=== PATIENT | female | born 2000 | race Caucasian/White ===

== ENCOUNTER 2021-06-16 20:03 | Outpatient (CLI) | payer OTHER ==
[2021-06-16 20:54] VITALS: BP 125/58; PULSE 97; RESP 18; TEMP 97.8
--- NOTE | 2021-06-18 09:12 | P.MSEPDOC ---
Presenting Problems - Arrival Data Date of Arrival on Unit: 06/16/21 Time of Arrival on Unit: 20:03 Mode of Transport: Wheelchair - Complaint OB-Reason for Admission/Chief Complaint: Other Comment: back/tailbone pain Medical History - Information : 1 Para: 0 Term: 0 : 0 Abortions: Spontaneous or Elective: 0 Number of Living Children: 0 - Gestational Age Gestational Age by CELSO (wks/days): 35 Weeks and 2 Days - History Complications: Smoker Comment: vapes and marijuana Review of Systems - Review of Systems Constitutional: No problems Breast: No problems ENT: No problems Cardiovascular: No problems Respiratory: No problems Gastrointestinal: No problems Genitourinary: No problems Musculoskeletal: No problems Neurological: No problems Skin: No problems Vital Signs - Temperature Temperature: 97.8 F Temperature Source: Temporal Artery Scan - Pulse Pulse Oximetery Pulse Rate: 97 Pulse Assessment Method: Pulse Oximetry - Respirations Respiratory Rate: 18 Oxygen Delivery Method: Room Air O2 Sat by Pulse Oximetry: 100 - Blood Pressure Right Arm Blood Pressure: 125/58 Blood Pressure Mean: 80 Blood Pressure Source: Automatic Cuff Medical Screen Scoring - Cervical Exam Dilation (cm): 0 Effacement (%): 0 Station: -2 Membranes: Intact - Uterine Contractions Frequency From (mins): 0 Frequency To (mins): 0 Duration From (seconds): 0 Duration To (seconds): 0 - Assessment - Baby A Baseline FHR: 130 Heart Rate - NICHD Category: Category I (Normal) NST: Reactive Physician Notification - Physician Notified Physician Notified Date: 06/16/21 Physician Notified Time: 20:26 Physician: Rima Dean New Order Received: Yes - Notification Comment Comment: Dr. Dean called, report given on patient of dr. fragoso, maternal/ status,. complaints of tailbone pain since yesterday, NST reactive, no contractions via TOCO or palpation, SVE (closed), pt has tried tylenol with no relief. Orders to discharge pt home with instructions to follow up with dr. fragoso at next scheduled appointment (thursday) and utilize tylenol, heat packs, and a maternity support belt for pain relief. Maternal Triage Index - Maternal Triage Index Presenting for scheduled procedure w/no complaint: No - Stat/Priority 1 Stat Priority 1: No - Urgent/Priority 2 Urgent Priority 2: No - Prompt/Priority 3 Prompt Priority 3: No - Non-Urgent/Priority 4 Non-Urgent Priority 4: Yes Criteria Met for Priority 4: 35 2/7 weeks, constant back/tailbone pain Disposition - Disposition OB Disposition: Physician follow up in office, Discharge to home Discharge Date: 06/16/21 Discharge Time: 20:32 I agree with the RN Medical Screening Exam: Yes Case reviewed; plan agreed upon as documented in EMR&OBIX.: Yes Comments: Patient was neither seen nor examined by me. Diagnosis: RELATED CONDITIONS, UNSPECIFIED, THIRD TRIMESTER
--- NOTE | 2021-06-18 09:15 | P.MSEPDOC ---
Presenting Problems - Arrival Data Date of Arrival on Unit: 06/16/21 Time of Arrival on Unit: 20:03 Mode of Transport: Wheelchair - Complaint OB-Reason for Admission/Chief Complaint: Other Comment: back/tailbone pain Medical History - Information : 1 Para: 0 Term: 0 : 0 Abortions: Spontaneous or Elective: 0 Number of Living Children: 0 - Gestational Age Gestational Age by CESLO (wks/days): 35 Weeks and 2 Days - History Complications: Smoker Comment: vapes and marijuana Review of Systems - Review of Systems Constitutional: No problems Breast: No problems ENT: No problems Cardiovascular: No problems Respiratory: No problems Gastrointestinal: No problems Genitourinary: No problems Musculoskeletal: No problems Neurological: No problems Skin: No problems Vital Signs - Temperature Temperature: 97.8 F Temperature Source: Temporal Artery Scan - Pulse Pulse Oximetery Pulse Rate: 97 Pulse Assessment Method: Pulse Oximetry - Respirations Respiratory Rate: 18 Oxygen Delivery Method: Room Air O2 Sat by Pulse Oximetry: 100 - Blood Pressure Right Arm Blood Pressure: 125/58 Blood Pressure Mean: 80 Blood Pressure Source: Automatic Cuff Medical Screen Scoring - Cervical Exam Dilation (cm): 0 Effacement (%): 0 Station: -2 Membranes: Intact - Uterine Contractions Frequency From (mins): 0 Frequency To (mins): 0 Duration From (seconds): 0 Duration To (seconds): 0 - Assessment - Baby A Baseline FHR: 130 Heart Rate - NICHD Category: Category I (Normal) NST: Reactive Physician Notification - Physician Notified Physician Notified Date: 06/16/21 Physician Notified Time: 20:26 Physician: Rima Dean New Order Received: Yes - Notification Comment Comment: Dr. Dean called, report given on patient of dr. fragoso, maternal/ status,. complaints of tailbone pain since yesterday, NST reactive, no contractions via TOCO or palpation, SVE (closed), pt has tried tylenol with no relief. Orders to discharge pt home with instructions to follow up with dr. fragoso at next scheduled appointment (thursday) and utilize tylenol, heat packs, and a maternity support belt for pain relief. Maternal Triage Index - Maternal Triage Index Presenting for scheduled procedure w/no complaint: No - Stat/Priority 1 Stat Priority 1: No - Urgent/Priority 2 Urgent Priority 2: No - Prompt/Priority 3 Prompt Priority 3: No - Non-Urgent/Priority 4 Non-Urgent Priority 4: Yes Criteria Met for Priority 4: 35 2/7 weeks, constant back/tailbone pain Disposition - Disposition OB Disposition: Physician follow up in office, Discharge to home Discharge Date: 06/16/21 Discharge Time: 20:32 I agree with the RN Medical Screening Exam: Yes Case reviewed; plan agreed upon as documented in EMR&OBIX.: Yes Diagnosis: RELATED CONDITIONS, UNSPECIFIED, THIRD TRIMESTER
== END 2021-06-16 20:32 | disposition home or self-care (01) ==
LOC: FBPOP 20:03
PROVIDERS: ATTEND Obstetrics & Gynecology
DX: O26.893 Other specified pregnancy related conditions, third trimester (principal); Z3A.35 35 weeks gestation of pregnancy; Z88.0 Allergy status to penicillin; Z88.1 Allergy status to other antibiotic agents
CPT/HCPCS: 59025; G0463; 99203

== ENCOUNTER → 2022-03-06 | Outpatient (CLI) | payer OTHER ==
--- NOTE | 2022-03-06 15:47 | US ---
EXAMINATION TYPE: Transabdominal DATE OF EXAM: 03/06/2022 2:44 PM COMPARISON: NONE CLINICAL HISTORY: Z36.89 ENCOUNTER FOR OTHER SPECIFIED SCREENIN. CONFIRM GESTATIONAL AGE AN D VIABILITY EXAM PERFORMED: Transabdominal (TA) EXAM MEASUREMENTS: GESTATIONAL AGE / DATING Physician Established: Not yet established Dates by LMP: (12 weeks/6 days) EDC: 09/12/2022 Dates by First Scan: No previous this is first scan Dates by Current Scan for: (12 weeks/6 days) EDC: 09/12/2022 MATERNAL ANATOMY Uterus: wnl Right Ovary: wnl Left Ovary: wnl Post CDS / Adnexa: wnl Presence of free fluid: No Presence of corpus luteal cyst: No Presence of subchorionic bleed: No GESTATION / SURVEY CRL: 6.46 (12 weeks/6 days) Heart Rate: 172 bpm Rhythm: Normal IUP: Viable IUP Date of LMP: 09/12/2022 IMPRESSION: 1. Single intrauterine gestation estimated at 12 weeks 6 days gestation based on crown-rump length. C ardiac activity is maximum 172 bpm.
== END | disposition home or self-care (01) ==
LOC: RADUSWWP 14:12
PROVIDERS: ATTEND Obstetrics & Gynecology
DX: Z36.89 Encounter for other specified antenatal screening (principal); Z3A.12 12 weeks gestation of pregnancy
CPT/HCPCS: 76801

== ENCOUNTER 2022-03-10 11:31 | Emergency (ER) | payer OTHER ==
--- NOTE | 2022-03-10 12:53 | ED ---
URI HPI - General Chief Complaint: Upper Respiratory Infection Stated Complaint: Cough Time Seen by Provider: 03/10/22 12:04 Source: patient, RN notes reviewed Mode of arrival: ambulatory Limitations: no limitations - History of Present Illness Initial Comments: 21-year-old female presents emergency Department chief complaint of fever cough congestion bodyaches. Symptoms started last 24 hours. Patients significant others gets tested positive for influenza week ago. Patient has had no nausea vomiting diarrhea constipation she's been eating and drinking well, no ear pain no sore throat - Related Data Home Medications Medication Instructions Recorded Confirmed Pnv No.95/Ferrous Fum/Folic AC 1 tab PO DAILY 06/16/21 06/16/21 [ Multivitamin Tablet] Allergies Allergy/AdvReac Type Severity Reaction Status Date / Time amoxicillin Allergy Swelling Verified 03/10/22 11:59 Penicillins Allergy Rash/Hives Verified 03/10/22 11:59 Review of Systems ROS Statement: Those systems with pertinent positive or pertinent negative responses have been documented in the HPI. ROS Other: All systems not noted in ROS Statement are negative. Past Medical History Past Medical History: No Reported History History of Any Multi-Drug Resistant Organisms: None Reported Past Surgical History: No Surgical Hx Reported Past Psychological History: No Psychological Hx Reported Smoking Status: Vaper General Exam Limitations: no limitations General appearance: alert, in no apparent distress Head exam: Present: atraumatic, normocephalic, normal inspection Eye exam: Present: normal appearance, PERRL, EOMI. Absent: scleral icterus, conjunctival injection, periorbital swelling ENT exam: Present: normal exam, normal oropharynx, mucous membranes moist Neck exam: Present: normal inspection, full ROM. Absent: tenderness, meningismus, lymphadenopathy Respiratory exam: Present: normal lung sounds bilaterally. Absent: respiratory distress, wheezes, rales, rhonchi, stridor Cardiovascular Exam: Present: regular rate, normal rhythm, normal heart sounds. Absent: systolic murmur, diastolic murmur, rubs, gallop, clicks GI/Abdominal exam: Present: soft, normal bowel sounds. Absent: distended, tenderness, guarding, rebound, rigid Neurological exam: Present: alert Skin exam: Present: warm, dry, intact, normal color. Absent: rash Course Vital Signs 03/10/22 12:00 Temperature 97.6 F Pulse Rate 92 Respiratory 16 Rate Blood Pressure 126/80 O2 Sat by Pulse 95 Oximetry Medical Decision Making - Medical Decision Making Patient's severe is positive for influenza patient has negative patient discharged in stable condition return parameters were discussed. - Lab Data Lab Results 03/10/22 Range/Units 12:17 Influenza Type A (PCR) Not Detected (Not Detectd) Influenza Type B (PCR) Not Detected (Not Detectd) RSV (PCR) Not Detected (Not Detectd) SARS-CoV-2 (PCR) Not Detected (Not Detectd) Disposition Clinical Impression: Acute upper respiratory infection Disposition: HOME SELF-CARE Condition: Stable Instructions (If sedation given, give patient instructions): Upper Respiratory Infection (ED) Additional Instructions: Please return to the Emergency Department if symptoms worsen or any other concerns. Is patient prescribed a controlled substance at d/c from ED?: No Referrals: None,Stated [Primary Care Provider] - 1-2 days Time of Disposition: 13:41
[2022-03-10 13:59] VITALS: BP 135/85; PULSE 95; RESP 18; TEMP 99.2
== END 2022-03-10 13:53 | disposition home or self-care (01) ==
LOC: EC 11:31
DX: J06.9 Acute upper respiratory infection, unspecified (principal); F17.290 Nicotine dependence, other tobacco product, uncomplicated; Z88.0 Allergy status to penicillin; Z20.822 Contact with and (suspected) exposure to COVID-19
CPT/HCPCS: 87636; 99283

== ENCOUNTER 2022-06-25 07:41 | Emergency (ER) | payer OTHER ==
[2022-06-25 08:01] VITALS: RESP 18; TEMP 97.9
--- NOTE | 2022-06-25 08:33 | ED ---
General Adult HPI - General Chief complaint: Upper Respiratory Infection Stated complaint: Flu/Covid Test Time Seen by Provider: 06/25/22 08:04 Source: patient, RN notes reviewed Mode of arrival: ambulatory - History of Present Illness Initial comments: 22-year-old female presents to the emergency department with chief complaint of cough and congestion x1 day. She also admits to weakness and fatigue 1 day. She states she has been taking tylenol at home for aches. Denies fever. Denies nausea, vomiting, diarrhea. - Related Data Home Medications Medication Instructions Recorded Confirmed Pnv No.95/Ferrous Fum/Folic AC 1 tab PO DAILY 06/16/21 05/21/22 [ Multivitamin Tablet] Aspirin [Adult Low Dose Aspirin EC] 81 mg PO DAILY 05/21/22 05/21/22 Allergies Allergy/AdvReac Type Severity Reaction Status Date / Time amoxicillin Allergy Swelling Verified 06/25/22 08:01 Penicillins Allergy Rash/Hives Verified 06/25/22 08:01 Review of Systems ROS Statement: Those systems with pertinent positive or pertinent negative responses have been documented in the HPI. ROS Other: All systems not noted in ROS Statement are negative. Past Medical History Past Medical History: No Reported History History of Any Multi-Drug Resistant Organisms: None Reported Past Surgical History: No Surgical Hx Reported Past Psychological History: No Psychological Hx Reported Smoking Status: Never smoker, Vaper Past Alcohol Use History: None Reported Past Drug Use History: None Reported General Exam General appearance: alert, in no apparent distress Head exam: Present: atraumatic, normocephalic, normal inspection Eye exam: Present: normal appearance, PERRL. Absent: scleral icterus, conjunctival injection, periorbital swelling ENT exam: Present: normal exam, normal oropharynx, mucous membranes moist Neck exam: Present: normal inspection, full ROM. Absent: tenderness, meningismus, lymphadenopathy Respiratory exam: Present: normal lung sounds bilaterally. Absent: respiratory distress, wheezes, rales, rhonchi, stridor Cardiovascular Exam: Present: normal rhythm, tachycardia, normal heart sounds. Absent: systolic murmur, diastolic murmur, rubs, gallop, clicks Neurological exam: Present: alert, oriented X3 Skin exam: Present: warm, dry, intact, normal color. Absent: rash Course Vital Signs 06/25/22 06/25/22 07:57 08:31 Temperature 97.9 F Pulse Rate 111 H Respiratory 18 18 Rate Blood Pressure 119/75 O2 Sat by Pulse 96 Oximetry Medical Decision Making - Medical Decision Making Was pt. sent in by a medical professional or institution (MARIBELL Medina, ARMORED TRANSPORT SERVICE MANAGER, urgent care, hospital, or longterm...) When possible be specific @ -No Did you speak to anyone other than the patient for history (EMS, parent, family, police, friend...)? What history was obtained from this source @ -No Did you review nursing and triage notes (agree or disagree)? Why? @ -I reviewed and agree with nursing and triage notes Were old charts reviewed (outside hosp., previous admission, EMS record, old EKG, old radiological studies, urgent care reports/EKG's, longterm records)? Report findings @ -No old charts were reviewed Differential Diagnosis (chest pain, altered mental status, abdominal pain women, abdominal pain men, vaginal bleeding, weakness, fever, dyspnea, syncope, headache, dizziness, GI bleed, back pain, seizure, CVA, palpatations, mental health, musculoskeletal)? @ -Covid, influenza, URI, this list is not all-inclusive EKG interpreted by me (3pts min.). @ -None X-rays interpreted by me (1pt min.). @ -None done CT interpreted by me (1pt min.). @ -None done U/S interpreted by me (1pt. min.). @ -None done What testing was considered but not performed or refused? (CT, X-rays, U/S, labs)? Why? @ -None What meds were considered but not given or refused? Why? @ -None Did you discuss the management of the patient with other professionals (professionals i.e. MARIBELL Medina, ARMORED TRANSPORT SERVICE MANAGER, lab, RT, psych nurse, social work lecturer, appraisal technician, teacher, chief information security officer, registered nurse hh case manager)? Give summary @ -No Was smoking cessation discussed for >3mins.? @ -No Was critical care preformed (if so, how long)? @ -No Were there social determinants of health that impacted care today? How? (Homelessness, low income, unemployed, alcoholism, drug addiction, transportation, low edu. Level, literacy, decrease access to med. care, [facility], rehab)? @ -No Was there de-escalation of care discussed even if they declined (Discuss DNR or withdrawal of care, Hospice)? DNR status @ -No What co-morbidities impacted this encounter? (DM, HTN, Smoking, COPD, CAD, Cancer, CVA, ARF, Chemo, Hep., AIDS, mental health diagnosis, sleep apnea, morbid obesity)? @ -None Was patient admitted / discharged? Hospital course, mention meds given and route, prescriptions, significant lab abnormalities, going to OR and other pertinent info. @ -Discharged patient presented with 1 day of cough and congestion. Covid test positive. Patient discharged in stable condition Undiagnosed new problem with uncertain prognosis? @ -No Drug Therapy requiring intensive monitoring for toxicity (Heparin, Nitro, Insulin, Cardizem)? @ -No Were any procedures done? @ -No Diagnosis/symptom? @ -Covid 19 Acute, or Chronic, or Acute on Chronic? @ -Acute Uncomplicated (without systemic symptoms) or Complicated (systemic symptoms)? @ -Uncomplicated Side effects of treatment? @ -No Exacerbation, Progression, or Severe Exacerbation? @ -No Poses a threat to life or bodily function? How? (Chest pain, [place], [place], pneumonia, PE, COPD, DKA, ARF, appy, cholecystitis, CVA, Diverticulitis, Homicidal, Suicidal, threat to staff... and all critical care pts) @ -No - Lab Data Lab Results 06/25/22 Range/Units 08:17 Influenza Type A (PCR) Not Detected (Not Detectd) Influenza Type B (PCR) Not Detected (Not Detectd) RSV (PCR) Not Detected (Not Detectd) SARS-CoV-2 (PCR) Detected A (Not Detectd) Disposition Clinical Impression: COVID-19 affecting in third trimester Disposition: HOME SELF-CARE Condition: Stable Additional Instructions: Please return to the Emergency Department if symptoms worsen or any other concerns. Is patient prescribed a controlled substance at d/c from ED?: No Referrals: None,Stated [Primary Care Provider] - 1-2 days Time of Disposition: 09:19
[2022-06-25 09:47] VITALS: BP 125/78; PULSE 102
== END 2022-06-25 09:47 | disposition home or self-care (01) ==
LOC: EC 07:41
DX: O98.513 Other viral diseases complicating pregnancy, third trimester (principal); O99.513 Diseases of the respiratory system complicating pregnancy, third trimester; U07.1 COVID-19; J98.8 Other specified respiratory disorders; Z88.0 Allergy status to penicillin; Z3A.00 Weeks of gestation of pregnancy not specified
CPT/HCPCS: 87636; 99283

== ENCOUNTER 2022-09-09 06:04 | Inpatient (IN) | payer OTHER ==
--- NOTE | 2022-09-08 17:13 | P.HPOB ---
History of Present Illness H&P Date: 09/08/22 Chief Complaint: Macrosomia This is a 22 y.o. female, 3, para 1, with an estimated date of confinement of 09/12/2022, estimated gestational age of 39-3/7 weeks, who pre sents for primary delivery due to macrosomia. Patient was diagnosed with gestational diabetes with uncontrolled sugars. She did see MFM at least 1 time and was uploading sugars to the portal. MFM notified my office that they have not been able to get ahold of her and she has missed her appointments. They did recommend insulin, but I am unsure if she started on it. She has also not been to my office in almost 3 weeks and we are unable to reach her either. She had an ultrasound at 37 weeks with estimated weight of 8#14oz and therefore section was recommended due to risk of shoulder dystocia with her uncontrolled diabetes. labs: Hepatitis B surface antigen-neg RPR-NR Rubella-immune Blood type-A+ Antibody screen-neg HIV-NR Hemoglobin-12.9 [id number] Hepatitis C-neg Random glucose-69 GC/Chlamydia/Trich-neg 1 hr. GTT-137; 3 hr. GTT-2 values high GBS-neg OB Hx: . History of 1 vaginal delivery at term, 6#14oz, complicated by severe pre-eclampsia requiring magnesium Assisted Living Manager Hx: No history of STDs Social Hx: Single. Unemployed. Review of Systems Constitutional: Denies chills, Denies fever Eyes: denies blurred vision, denies pain Ears, nose, mouth and throat: Denies headache, Denies sore throat Cardiovascular: Denies chest pain, Denies shortness of breath Respiratory: Denies cough Gastrointestinal: Reports abdominal pain (irregular contractions) Genitourinary: Reports pelvic pain, Reports Musculoskeletal: Reports low back pain Integumentary: Denies pruritus, Denies rash Neurological: Denies numbness, Denies weakness Psychiatric: Denies anxiety, Denies depression Past Medical History Additional Past Medical History / Comment(s): Gestational diabetes History of Any Multi-Drug Resistant Organisms: None Reported Past Surgical History: No Surgical Hx Reported Past Psychological History: No Psychological Hx Reported Smoking Status: Vaper (Quit with ) Past Alcohol Use History: None Reported Past Drug Use History: Marijuana (Quit with ) - Past Family History Mother Family Medical History: Cancer (Skin) Medications and Allergies Home Medications Medication Instructions Recorded Confirmed Type Pnv No.95/Ferrous Fum/Folic AC 1 tab PO HS 06/16/21 09/09/22 History [ Multivitamin Tablet] Aspirin [Adult Low Dose Aspirin EC] 81 mg PO HS 05/21/22 09/09/22 History Allergies Allergy/AdvReac Type Severity Reaction Status Date / Time amoxicillin Allergy Swelling Verified 06/25/22 09:52 Penicillins Allergy Rash/Hives Verified 06/25/22 09:52 Exam Osteopathic Statement: *. No significant issues noted on an osteopathic structural exam other than those noted in the History and Physical/Consult. HEENT: within normal limits Heart: regular rate and rhythm Lungs: clear to auscultation bilaterally Abdomen: Cervix: declined exam heart tones: 140's by doppler Extremities: neg. Suman's Results Result Diagrams: 09/09/22 06:30 Assessment and Plan (1) 39 weeks gestation of Current Visit: No Status: Acute Code(s): Z3A.39 - 39 WEEKS GESTATION OF SNOMED Code(s): 63022584 (2) Macrosomia of fetus affecting management of mother Current Visit: No Status: Acute Code(s): O36.60X0 - MATERNAL CARE FOR EXCESS GROWTH, UNSP TRIMESTER, UNSP SNOMED Code(s): 12531725 (3) Gestational diabetes mellitus (GDM) Current Visit: No Status: Acute Code(s): O24.419 - GESTATIONAL DIABETES MELLITUS IN , UNSP CONTROL SNOMED Code(s): 76069285 Plan: Proceed with primary section due to macrosomia and gestational diabetes. I have discussed the risks, benefits, and alternative therapies for the above- mentioned procedure and for both sedation/anesthesia as well as necessary blood products administration, if indicated, as they pertain to this patient. The patient has indicated her understanding and acceptance of the risks and procedures discussed.
[2022-09-09] MEDS ORDERED: CARBOPROST TROMETHAMINE 250 MCG/ML 1 ML AMP IM PRN (06:25)
[2022-09-09] MEDS ORDERED: miSOPROStoL 200 MCG TAB PO PRN (06:25)
[2022-09-09] MEDS ORDERED: OXYTOCIN 30 UNITS/500 ML NS 30 UNIT in SALINE 1 500ML.BAG IV SCH (06:25)
[2022-09-09] MEDS ORDERED: LACTATED RINGERS 1,000 ML IV ONE (06:25)
[2022-09-09] MEDS ORDERED: CITRIC ACID-SODIUM CITRATE 15 ML CUP PO ONE (06:25)
[2022-09-09] MEDS ORDERED: LIDOCAINE 1% (10MG/ML) FOR IV START INTRADERMA PRN (06:25)
[2022-09-09] MEDS ORDERED: OXYTOCIN 10 UNIT/ML 1 ML VIAL IM PRN (06:25)
[2022-09-09] MEDS ORDERED: METHYLERGONOVINE 0.2 MG/ML 1 ML AMP IM PRN (06:25)
[2022-09-09] MEDS ORDERED: TRANEXAMIC 1,000 MG/100ML-NACL 1,000 MG in EMPTY BAG 1 BAG IV PRN (06:25)
[2022-09-09 06:59] LABS: Glucose,Whole Blood 92 mg/dL (70-110)
[2022-09-09 07:01] LABS: Anisocytosis Slight; Basophils # (A) 0.1 k/uL (0-0.2); Basophils % (A) 0 %; Eosinophils # (A) 0.3 k/uL (0-0.7); Eosinophils % (A) 3 %; HCT 31.6 % (34.0-46.0); Hypochromasia Marked; Lymphocytes # (A) 2.5 k/uL (1.0-4.8); Lymphocytes % (A) 23 %; MCH 25.8 pg (25.0-35.0); MCHC 31.8 g/dL (31.0-37.0); MCV 81.1 fL (80.0-100.0); Mean Platelet Volume 10.4; Monocytes # (A) 0.6 k/uL (0-1.0); Monocytes % (A) 6 %; Neutrophils # (A) 7.1 k/uL (1.3-7.7); Neutrophils % (A) 66 %; Platelet Count 206 k/uL (150-450); Poikilocytosis Slight; RBC 3.89 m/uL (3.80-5.40); RDW 17.1 % (11.5-15.5); WBC 10.7 k/uL (3.8-10.6)
[2022-09-09] MEDS: LACTATED RINGERS 1,000 ML IV SCH ×3 (07:40→23:01)
[2022-09-09] MEDS ORDERED: KETOROLAC 15 MG/ML 1 ML VIAL ONE (07:56)
[2022-09-09] MEDS ORDERED: NALBUPHINE 10 MG/ML (10 ML MDV) ONE (07:56)
[2022-09-09] MEDS ORDERED: ePHEDrine 50 MG/ML 1 ML VIAL ONE (07:56)
[2022-09-09] MEDS ORDERED: PHENYLEPHRINE-0.9% NACL SYG 1,000 MCG/10 ML SYRINGE ONE (07:56)
[2022-09-09] MEDS ORDERED: OXYTOCIN 30 UNITS/500 ML NS BAG IV ONE (07:56)
[2022-09-09] MEDS ORDERED: ONDANSETRON 4 MG/2 ML VIAL ONE (07:56)
[2022-09-09] MEDS ORDERED: MORPHINE SULFATE (PF) 0.3 MG/0.3 ML SYR ONE (07:56)
[2022-09-09 08:26] LABS: Amphetamine Screen,Urine Not Detected (NotDetected); Barbiturate Screen,Urine Not Detected (NotDetected); Benzodiazepines Screen,Urine Not Detected (NotDetected); Cocaine Screen,Urine Not Detected (NotDetected); Methadone Screen, Urine Not Detected (NotDetected); Opiate Screen,Urine Not Detected (NotDetected); Oxycodone Screen, Urine Not Detected (NotDetected); Phencyclidine Screen,Urine Not Detected (NotDetected); Tricyclic Antidepressant,Urine Not Detected (NotDetected); Urn Cannabinoid Scrn Detected (NotDetected)
--- NOTE | 2022-09-09 08:45 | P.OP ---
Date of Procedure: 09/09/22 Preoperative Diagnosis: 1. Intrauterine at 39-4/7 weeks. 2. Gestational diabetes-uncontrolled. 3. macrosomia. Postoperative Diagnosis: Same Procedure(s) Performed: Primary low transverse section Anesthesia: spinal (Duramorph) Surgeon: Natalia Ram [employer] Agent #1: Osmany Sidhu Estimated Blood Loss (ml): 500 Pathology: other (Placenta) Condition: stable Disposition: floor Indications for Procedure: This is a 22-year-old female 3 para 1 with a estimated date of confinement of 09/12/2022, estimated gestational age of 39-4/7 weeks, who presented for scheduled primary low transverse section secondary to macrosomia at greater than 90th percentile and gestational diabetes- uncontrolled. I have discussed the risks, benefits, and alternative therapies for the above- mentioned procedure and for both sedation/anesthesia as well as necessary blood products administration, if indicated, as they pertain to this patient. The patient has indicated her understanding and acceptance of the risks and procedur es discussed. Operative Findings: A viable female is noted in the vertex presentation with scores of 9 at 1 minute and 9 at 5. Nuchal cord 2 was noted. weight is 9 lbs. 5 oz. Normal uterus tubes and ovaries are noted. Description of Procedure: The patient is taken to the operating room where she is placed in the dorsal hopson pine position with leftward tilt after spinal Duramorph anesthesia is given. She is prepped and draped in the normal sterile fashion. Skin was tested and found to be adequately anesthetized. A Pfannenstiel skin incision was made with a scalpel. A second knife was used to carry the incision down to the underlying layer of fascia. The fascia was nicked in the midline with a scalpel and then extended laterally bilaterally with Ponce scissors. The anterior lip of the fascia was grasped with 2 Tayla clamps and then dissected off the underlying rectus muscle in the midline with Ponce scissors. The inferior aspect of the fascial incision was grasped with 2 Tayla clamps and dissected off the underlying rectus muscle and the midline with Ponce scissors. Next the peritoneum layer was tented up with 2 hemostats and then entered sharply with the scalpel. The incision is extended superiorly and inferiorly with Metzenbaum scissors. Next a DeLee retractor is placed. The vesicouterine peritoneum is entered sharply with Metzenbaum scissors and extended laterally bilaterally with Metzenbaum scissors and then the bladder flap is pushed inferiorly. The lower uterine segment is incised in transverse fashion with the scalpel and then bluntly entered with a hemostat. Clear fluid is noted. The incision was then extended laterally bilaterally with 2 fingers. Next the 's head is deli tanvir through the incision. Nose and mouth are bulb suctioned. Nuchal cord 2 is reduced around the infant's neck. The remainder of the is easily delivered and placed on mother's abdomen. Cord is clamped and cut. Infant is taken to warmer by nursing staff. Uterine fundus is gently massaged and placenta is delivered manually. Uterus is exteriorized and cleared of all clots and debris. Uterine incision is closed with 0 Vicryl suture in a running locked fashion. A second layer of 0 Vicryl suture is used in a running fashion for hemostasis. Once adequate hemostasis as assured, the vesicouterine peritoneum is reapproximated with 2-0 Vicryl suture in a running fashion. Posterior cul-de-sac is suctioned of all clots and debris. Uterus is returned to the abdomen. Incision is noted to be hemostatic. Peritoneal layer is closed with 0 Vicryl suture in a running fashion. Muscle layer is reapproximated with 0 Vicryl suture in interrupted fashion. Fascia layer is then closed with 0 PDS suture with 2 sutures meeting in the midline and the knots buried in either side and in the midline. The subcutaneous tissue was then closed with 2-0 Vicryl suture. Skin layer was then closed with petr. All sponge and needle counts are correct. The patient is taken to recovery room in stable condition.
[2022-09-09] MEDS ORDERED: ONDANSETRON 4 MG/2 ML VIAL IVP PRN ×2 (08:59→09:16)
[2022-09-09] MEDS ORDERED: diphenhydrAMINE 50 MG/ML 1 ML VIAL IVP PRN ×3 (08:59→09:16)
[2022-09-09] MEDS ORDERED: NALOXONE 0.4 MG/ML 1 ML VIAL IV PRN ×2 (08:59→09:16)
[2022-09-09] MEDS ORDERED: METOCLOPRAMIDE 5 MG/ML 2 ML VIAL IVP PRN (09:16)
[2022-09-09] MEDS ORDERED: LANOLIN CREAM 5 GM TUBE TOPICAL PRN (09:16)
[2022-09-09] MEDS ORDERED: diphenhydrAMINE 25 MG CAP PO PRN (09:16)
[2022-09-09] MEDS ORDERED: SIMETHICONE 80 MG CHEWABLE PO PRN (09:16)
[2022-09-09] MEDS ORDERED: HYDROmorphone 1 MG/ML 1 ML SYRINGE IVP PRN (09:16)
[2022-09-09] MEDS ORDERED: diphenhydrAMINE 50 MG CAP PO PRN (09:16)
[2022-09-09] MEDS ORDERED: ZOLPIDEM 5 MG TAB PO PRN (09:16)
[2022-09-09] MEDS ORDERED: HYDROmorphone 0.5 MG/0.5 ML SYRINGE IVP PRN (09:16)
[2022-09-09] MEDS: SENNOSIDES-DOCUSATE SODIUM 1 EACH TAB PO SCH ×2 (11:21→20:59)
[2022-09-09] MEDS: ACETAMINOPHEN TAB 500 MG TAB PO SCH ×2 (11:25→22:49)
[2022-09-09] MEDS ORDERED: ACETAMINOPHEN IV (For NPO) 1,000 MG in EMPTY BAG 1 BAG IVPB PRN (12:00)
[2022-09-09] MEDS ORDERED: KETOROLAC 15 MG/ML 1 ML VIAL IVP SCH (18:00)
[2022-09-09] MEDS: IBUPROFEN 600 MG TAB PO SCH ×2 (20:59)
[2022-09-10] MEDS: ACETAMINOPHEN TAB 500 MG TAB PO SCH ×4 (05:22→17:42)
[2022-09-10] MEDS: IBUPROFEN 600 MG TAB PO SCH ×4 (05:23→20:50)
[2022-09-10] MEDS: LACTATED RINGERS 1,000 ML IV SCH ×2 (05:48→16:20)
[2022-09-10 07:22] LABS: Anisocytosis Slight; Basophils % (A) 0 %; Eosinophils # (A) 0.1 k/uL (0-0.7); Eosinophils % (A) 1 %; HCT 29.8 % (34.0-46.0); HGB 9.2 gm/dL (11.4-16.0); Hypochromasia Marked; Lymphocytes # (A) 1.5 k/uL (1.0-4.8); Lymphocytes % (A) 16 %; MCH 24.8 pg (25.0-35.0); MCHC 30.9 g/dL (31.0-37.0); MCV 80.5 fL (80.0-100.0); Mean Platelet Volume 12.6; Monocytes # (A) 0.6 k/uL (0-1.0); Monocytes % (A) 6 %; Neutrophils # (A) 7.2 k/uL (1.3-7.7); Neutrophils % (A) 75 %; Poikilocytosis Slight; RDW 17.1 % (11.5-15.5); WBC 9.6 k/uL (3.8-10.6)
[2022-09-10 07:29] LABS: Platelet Count 166 k/uL (150-450)
[2022-09-10] MEDS: SENNOSIDES-DOCUSATE SODIUM 1 EACH TAB PO SCH ×2 (08:18→21:40)
--- NOTE | 2022-09-10 08:42 | P.PNOBGPC ---
Subjective - Subjective Principal diagnosis: Status post primary section postoperative day #1 Interval history: Patient is doing okay. She is ambulating. She is passing some flatus and loose stool. Pain is been fairly well controlled at this time. She is working on breast-feeding. Patient reports: Reports appetite normal, Reports voiding normally, Reports pain well controlled, Reports ambulating normally : doing well Objective - Vital Signs Latest vital signs: Vital Signs Temp Pulse Resp BP Pulse Ox 09/10/22 03:45 98.4 F 77 18 134/66 97 09/10/22 00:00 98.3 F 71 18 106/68 96 09/09/22 20:00 97.9 F 69 18 136/69 97 09/09/22 16:00 98.1 F 64 18 130/80 98 09/09/22 12:00 97.7 F 62 18 126/79 98 09/09/22 10:47 97.6 F 64 18 137/64 98 09/09/22 10:13 97.8 F 67 18 119/65 98 09/09/22 09:59 59 L 99 09/09/22 09:47 58 L 18 115/61 99 09/09/22 09:32 97.0 F L 60 18 126/71 98 09/09/22 09:16 97.2 F L 59 L 18 133/69 99 09/09/22 09:02 97.0 F L 64 18 133/63 98 09/09/22 08:59 18 98 09/09/22 08:47 97.8 F 63 18 142/79 99 Intake and Output 09/09/22 09/10/22 09/10/22 22:59 06:59 14:59 Intake Total 1500 Output Total 400 600 Balance 1100 -600 Intake: IV 1000 Oral 500 Output: Urine 400 600 Other: # Voids 1 1 - Exam Extremities: Present: normal. Absent: tenderness, edema Abdomen: Present: normal appearance, soft (Positive bowel sounds 4). Absent: distention, tenderness Incision: Present: normal, dry, intact. Absent: erythematous Uterus: Present: normal, firm. Absent: tenderness - Labs Labs: Abnormal Lab Results - Last 24 Hours (Table) 09/10/22 Range/Units 05:25 RBC 3.70 L (3.80-5.40) m/uL Hgb 9.2 L (11.4-16.0) gm/dL Hct 29.8 L (34.0-46.0) % MCH 24.8 L (25.0-35.0) pg MCHC 30.9 L (31.0-37.0) g/dL RDW 17.1 H (11.5-15.5) % Assessment and Plan Assessment: Status post primary low transverse section postoperative day #1 (1) 39 weeks gestation of Current Visit: No Status: Acute Code(s): Z3A.39 - 39 WEEKS GESTATION OF SNOMED Code(s): 29380063 (2) Macrosomia of fetus affecting management of mother Current Visit: No Status: Acute Code(s): O36.60X0 - MATERNAL CARE FOR EXCESS GROWTH, UNSP TRIMESTER, UNSP SNOMED Code(s): 85256861 (3) Gestational diabetes mellitus (GDM) Current Visit: No Status: Acute Code(s): O24.419 - GESTATIONAL DIABETES MELLITUS IN , UNSP CONTROL SNOMED Code(s): 88124256 Plan: Will advance diet as tolerated. Continue postoperative and care. Anticipate probable discharge home tomorrow.
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
[2022-09-11] MEDS: ACETAMINOPHEN TAB 500 MG TAB PO SCH ×3 (00:03→12:31)
[2022-09-11] MEDS: IBUPROFEN 600 MG TAB PO SCH ×3 (02:59→15:40)
[2022-09-11] MEDS: SENNOSIDES-DOCUSATE SODIUM 1 EACH TAB PO SCH (09:40)
[2022-09-11 09:50] VITALS: BP 142/88; PULSE 84; RESP 16; TEMP 98.3
--- NOTE | 2022-09-11 10:21 | P.PNOBGPC ---
Subjective - Subjective Principal diagnosis: Status post primary postoperative day #2 Interval history: Patient is doing well. She is ambulating. Lochia is decreasing. She is still passing flatus and some looser stools. She is breast-feeding. She is tolerating regular diet. Her pain is fairly well controlled at this time. She states she does still feel a little weak when she stands but does not feel dizzy or lightheaded. She is uncertain if she may want to go home later today or not. Patient reports: Reports appetite normal, Reports voiding normally, Reports pain well controlled, Reports ambulating normally [place]: doing well, nursing well Objective - Vital Signs Latest vital signs: Vital Signs Temp Pulse Resp BP Pulse Ox 09/11/22 08:00 98.3 F 84 16 142/88 98 09/11/22 00:00 98 F 82 18 127/84 97 09/10/22 16:00 98.7 F 86 18 130/83 98 Intake and Output 09/10/22 09/11/22 09/11/22 22:59 06:59 14:59 Intake Total 200 Balance 200 Intake: Oral 200 Other: # Voids 1 - Exam Extremities: Present: normal. Absent: tenderness, edema Abdomen: Present: normal appearance, soft (Positive bowel sounds 4). Absent: distention, tenderness Incision: Present: normal, dry, intact. Absent: erythematous Uterus: Present: normal, firm. Absent: tenderness Assessment and Plan Assessment: Status post primary low transverse section postoperative day #2. (1) 39 weeks gestation of Current Visit: No Status: Acute Code(s): Z3A.39 - 39 WEEKS GESTATION OF SNOMED Code(s): 32005949 (2) Macrosomia of fetus affecting management of mother Current Visit: No Status: Acute Code(s): O36.60X0 - MATERNAL CARE FOR EXCESS GROWTH, UNSP TRIMESTER, UNSP SNOMED Code(s): 28884207 (3) Gestational diabetes mellitus (GDM) Current Visit: No Status: Acute Code(s): O24.419 - GESTATIONAL DIABETES MELLITUS IN , UNSP CONTROL SNOMED Code(s): 48059544 Plan: Will discharge home later today if patient desires. We'll remove petr prior to discharge and place Steri-Strips. She will be given a prescription for ibuprofen 600 mg as needed every 6 hours. She will alternate with Tylenol. She is encouraged to continue to use stool softeners if needed. She is advised to follow up in the office in 6 weeks for a check and in 1 week for a postoperative check. She is advised to call the office if she has any further questions or concerns prior to her appointment time.
--- NOTE | 2022-09-11 10:25 | P.DS ---
Providers Date of admission: 09/09/22 06:04 Expected date of discharge: 09/11/22 Attending physician: Natalia Ram Primary care physician: Stated None - Discharge Diagnosis(es) (1) 39 weeks gestation of Current Visit: No Status: Acute (2) Macrosomia of fetus affecting management of mother Current Visit: No Status: Acute (3) Gestational diabetes mellitus (GDM) Current Visit: No Status: Acute Hospital Course: This is a 22-year-old female 3 para 1 at 39-4/7 weeks who presented for scheduled primary section due to macrosomia and uncontrolled gestational diabetes. She underwent a primary low transverse section on 09/09/2022 and delivered a viable female with scores of 9 at 1 minute and 9 at 5 minutes and weight of 9 lbs. 5 oz. Her postoperative course has been essentially uncomplicated. She is passing flatus and bowel movement. She is ambulating without difficulty. She states her pain is been fairly well-controlled. She is breast-feeding. Vital signs are stable. Abdomen is soft with fundus firm and nontender. Incision is clean dry and intact with petr in place. Extremities show negative Homans. Impression is status post primary low transverse section postoperative day #2. Plan is to discharge home later today if patient desires. Raritan will be removed and Steri-Strips placed prior to discharge. She will be given a prescription for ibuprofen 600 mg every 6 hours as needed for pain. She will alternate this with Tylenol. She has a breast pump at home. She is advised to follow up in the office in 1 week for a postoperative check and in 6 weeks for check. She is advised to call the office if she has any further questions or concerns prior to her appointment time. Procedures: Primary low transverse section for delivery of a viable female on 09/09/2022 Patient Condition at Discharge: Stable Plan - Discharge Summary New Discharge Prescriptions: New Ibuprofen [Motrin] 600 mg PO Q6H #60 tab Continue Pnv No.95/Ferrous Fum/Folic AC [ Multivitamin Tablet] 1 tab PO HS Discontinued Aspirin [Adult Low Dose Aspirin EC] 81 mg PO HS Discharge Medication List Pnv No.95/Ferrous Fum/Folic AC [ Multivitamin Tablet] 1 tab PO HS 06/16/21 [History] Ibuprofen [Motrin] 600 mg PO Q6H #60 tab 09/11/22 [Rx] Follow up Appointment(s)/Referral(s): Natalia Ram DO [Doctor of Osteopathic Medicine] - 1 Week ([id number] @1:30 Pm [id number] @11:30 am) Activity/Diet/Wound Care/Special Instructions: Instructions 1. Do not begin any exercise program for 3 weeks. 2. Do not resume sexual relations for 3 weeks or longer if uncomfortable. 3. You may take tub baths or showers at any time. 4. You may use tampons if desired after 3 weeks. 5. Keep the area of episiotomy (stitches) clean and dry. 6. If you are not nursing, wear a good fitting, supportive bra during the day and limit fluid intake for at least 1 week to prevent breast engorgement. 7. Call the office, [phone], within the next week to make appointment for your 6 week checkup if it has not already been made. 8. Report any of the following occurrences to the doctor promptly: a. Heavy, excessive bleeding b. Chills, fever c. Burning or frequency of urination d. Pain or redness and breasts if nursing e. Increasing pain or swelling in episiotomy (stitches). In addition to the above instructions, the following additional should be followed: 1. No heavy lifting or straining (exercising) until after 6 week checkup. 2. Keep abdominal incision clean and dry: You may wear a dressing if more comfortable. 3. Make office appointment for 10 days after going home or as instructed by her doctor. Discharge Disposition: HOME SELF-CARE
== END 2022-09-11 16:03 | disposition home or self-care (01) | DRG 540 ==
LOC: 4FBP 06:04
PROVIDERS: ADMIT Obstetrics & Gynecology; ATTEND Obstetrics & Gynecology
PROC: 10D00Z1 Extraction of Products of Conception, Low, Open Approach (ICD-10-PCS; principal; 2022-09-09 08:00)
DX: O36.63X0 Maternal care for excessive fetal growth, third trimester, not applicable or unspecified (principal); O24.429 Gestational diabetes mellitus in childbirth, unspecified control; O69.81X0 Labor and delivery complicated by cord around neck, without compression, not applicable or unspecified; Z88.0 Allergy status to penicillin; Z91.199 Patient's noncompliance with other medical treatment and regimen due to unspecified reason; Z79.82 Long term (current) use of aspirin; Z28.310 Unvaccinated for COVID-19; Z3A.39 39 weeks gestation of pregnancy; Z37.0 Single live birth
CPT/HCPCS: 80306; 83036; 85025; 86850; 86900; 86901; 88305; 88307

== ENCOUNTER 2023-02-19 20:36 | Emergency (ER) | payer OTHER ==
[2023-02-19] MEDS ORDERED: SODIUM CHLORIDE 0.9% 1,000 ML IV STA (22:10)
[2023-02-19 22:33] LABS: Basophils % (A) 0 %; Eosinophils # (A) 0.1 k/uL (0-0.7); Eosinophils % (A) 1 %; HCT 39.5 % (34.0-46.0); HGB 13.1 gm/dL (11.4-16.0); Lymphocytes # (A) 2.8 k/uL (1.0-4.8); Lymphocytes % (A) 27 %; MCHC 33.1 g/dL (31.0-37.0); MCV 81.5 fL (80.0-100.0); Monocytes # (A) 0.5 k/uL (0-1.0); Monocytes % (A) 5 %; Neutrophils # (A) 6.8 k/uL (1.3-7.7); Neutrophils % (A) 65 %; Platelet Count 300 k/uL (150-450); RBC 4.84 m/uL (3.80-5.40); RDW 15.3 % (11.5-15.5); WBC 10.3 k/uL (3.8-10.6)
[2023-02-19 23:00] LABS: ALT 20 U/L (4-34); AST 23 U/L (14-36); African American GFR (CKD) >90 (>60 ml/min/1.73 sqM); Albumin 4.6 g/dL (3.5-5.0); Alcohol <10 mg/dL; Alkaline Phosphatase 82 U/L (38-126); Anion Gap 12 mmol/L; Blood Urea Nitrogen 4 mg/dL (7-17); Calcium 9.4 mg/dL (8.4-10.2); Carbon Dioxide 22 mmol/L (22-30); Chloride 104 mmol/L (98-107); Glucose 91 mg/dL (74-99); Magnesium 1.9 mg/dL (1.6-2.3); Non-African American GFR(CKD) >90 (>60 ml/min/1.73 sqM); Potassium 3.2 mmol/L (3.5-5.1); Sodium 138 mmol/L (137-145); Total Bilirubin 0.6 mg/dL (0.2-1.3)
[2023-02-19 23:10] LABS: Amphetamine Screen,Urine Not Detected (NotDetected); Barbiturate Screen,Urine Not Detected (NotDetected); Benzodiazepines Screen,Urine Detected (NotDetected); Cocaine Screen,Urine Not Detected (NotDetected); Methadone Screen, Urine Not Detected (NotDetected); Opiate Screen,Urine Not Detected (NotDetected); Oxycodone Screen, Urine Not Detected (NotDetected); Phencyclidine Screen,Urine Not Detected (NotDetected); Tricyclic Antidepressant,Urine Not Detected (NotDetected); Urn Cannabinoid Scrn Detected (NotDetected)
[2023-02-19] MEDS ORDERED: LORazepam 2 MG/ML INJ IV STA (23:32)
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
--- NOTE | 2023-02-20 00:34 | CT ---
EXAM: CT Head Without Intravenous Contrast CLINICAL HISTORY: ITS.REASON CT Reason: Hallucinations TECHNIQUE: Axial computed tomography images of the head/brain without intravenous contrast. CTDI is 49.2 mGy and DLP is 1124.4 mGy-cm. This CT exam was performed using one or more of the following dose reduction techniques: automated exposure control, adjustment of the mA and/or kV according to patient size, and/or use of iterative reconstruction technique. COMPARISON: No relevant prior studies available. FINDINGS: No acute intracranial hemorrhage. No midline shift or mass effect. The territorial mott-white matter differentiation is maintained throughout. The ventricles and sulci are commensurate with age. The visualized orbits appear grossly unremarkable. The calvarium is intact. The visualized paranasal sinuses and mastoid air cells are grossly clear. IMPRESSION: No acute intracranial hemorrhage, midline shift, or mass effect.
[2023-02-20 00:40] VITALS: BP 145/96; PULSE 79; RESP 16; TEMP 98.1
== END 2023-02-20 00:29 | disposition home or self-care (01) ==
LOC: EC 20:36
DX: R44.3 Hallucinations, unspecified (principal); G47.00 Insomnia, unspecified; F17.290 Nicotine dependence, other tobacco product, uncomplicated; F12.90 Cannabis use, unspecified, uncomplicated; Z88.0 Allergy status to penicillin
CPT/HCPCS: 36415; 80053; 84443; 83735; 85025; 81025; 80306; 70450; 99285; 96374; 96361; G0480; J2060; 80320

== ENCOUNTER 2024-08-03 06:29 | Emergency (ER) | payer OTHER ==
--- NOTE | 2024-08-03 07:05 | ED ---
Psych HPI - General Chief Complaint: Psychiatric Symptoms Stated Complaint: Hallucinations Time Seen by Provider: 08/03/24 06:40 Source: patient, RN notes reviewed Mode of arrival: ambulatory Limitations: no limitations - History of Present Illness Initial Comments: 24-year-old female presents emergency department with chief complaint of anxiety, psych issues, dehydration. Patient states has not followed the last several days. Patient states she initially thought it was from her medications which she was on Wegovy and was not eating or drinking. She states that she stopped this a few weeks ago. Patient denies any suicidal homicidal but states that she just does not feel well she states she is very anxious she feels like she cannot sleep she has been up all night. Patient attempting to get into psychiatric facility for help but has been declined. - Related Data Home Medications Medication Instructions Recorded Confirmed Levothyroxine Sodium [Synthroid] 25 mcg PO DAILY 08/03/24 08/03/24 valACYclovir HCL [Valtrex] 500 mg PO DAILY 08/03/24 08/03/24 Previous Rx's Medication Instructions Recorded hydrOXYzine pamoate [Vistaril] 25 mg PO TID PRN #20 cap 08/03/24 Allergies Allergy/AdvReac Type Severity Reaction Status Date / Time amoxicillin Allergy Swelling Verified 08/03/24 11:43 Penicillins Allergy Rash/Hives Verified 08/03/24 11:43 Review of Systems ROS Statement: Those systems with pertinent positive or pertinent negative responses have been documented in the HPI. ROS Other: All systems not noted in ROS Statement are negative. Past Medical History Past Medical History: No Reported History Additional Past Medical History / Comment(s): Gestational diabetes History of Any Multi-Drug Resistant Organisms: None Reported Past Surgical History: No Surgical Hx Reported Past Anesthesia/Blood Transfusion Reactions: No Reported Reaction Past Psychological History: No Psychological Hx Reported Smoking Status: Vaper Past Alcohol Use History: None Reported Past Drug Use History: Marijuana - Past Family History Mother Family Medical History: Cancer (Skin) General Exam Limitations: no limitations General appearance: alert, in no apparent distress Head exam: Present: atraumatic, normocephalic, normal inspection Eye exam: Present: normal appearance, PERRL, EOMI. Absent: scleral icterus, conjunctival injection, periorbital swelling ENT exam: Present: normal oropharynx, mucous membranes dry. Absent: normal exam, mucous membranes moist Neck exam: Present: normal inspection, full ROM. Absent: tenderness, meningismus, lymphadenopathy Respiratory exam: Present: normal lung sounds bilaterally. Absent: respiratory distress, wheezes, rales, rhonchi, stridor Cardiovascular Exam: Present: normal rhythm, tachycardia, normal heart sounds. Absent: systolic murmur, diastolic murmur, rubs, gallop, clicks GI/Abdominal exam: Present: soft, normal bowel sounds. Absent: distended, tenderness, guarding, rebound, rigid Neurological exam: Present: alert, oriented X3 Psychiatric exam: Present: anxious Skin exam: Present: warm, dry, intact, normal color. Absent: rash Course Vital Signs 08/03/24 08/03/24 06:32 10:08 Temperature 98.6 F 98.7 F Pulse Rate 133 H 59 L Respiratory 20 14 Rate Blood Pressure 160/111 122/80 O2 Sat by Pulse 98 98 Oximetry Medical Decision Making - Medical Decision Making Was pt. sent in by a medical professional or institution (, PA, [employer], urgent care, hospital, or intermediate...) When possible be specific @ -No Did you speak to anyone other than the patient for history (EMS, parent, family, police, friend...)? What history was obtained from this source @ -No Did you review nursing and triage notes (agree or disagree)? Why? @ -I reviewed and agree with nursing and triage notes Were old charts reviewed (outside hosp., previous admission, EMS record, old EKG, old radiological studies, urgent care reports/EKG's, intermediate records)? Report findings @ -No old charts were reviewed Differential Diagnosis (chest pain, altered mental status, abdominal pain women, abdominal pain men, vaginal bleeding, weakness, fever, dyspnea, syncope, headache, dizziness, GI bleed, back pain, seizure, CVA, palpatations, mental health, musculoskeletal)? @ -Differential Mental Health Depression, anxiety, bipolar, psychosis, schizophrenia, borderline personality, situational depression, adjustment disorder, behavioral disorder, brain tumor, malingering, substance abuse, encephalopathy, medication reaction, dementia, hypothyroidism, degenerative neurologic disorder, lupus.... This is not meant to be all-inclusive list EKG interpreted by me (3pts min.). @ -[None X-rays interpreted by me (1pt min.). @ -None done CT interpreted by me (1pt min.). @ -None done U/S interpreted by me (1pt. min.). @ -None done What testing was considered but not performed or refused? (CT, X-rays, U/S, labs)? Why? @ -None What meds were considered but not given or refused? Why? @ -None Did you discuss the management of the patient with other professionals (professionals i.e. DrStaci, PA, [employer], lab, RT, psych nurse, social insurance administrator, water project engineer, teacher, senior grants officer, case consultant)? Give summary @ -EPS evaluated the patient and discussed case with psychiatry patient is open with [facility] and recommends patient be discharged on hydroxyzine Was smoking cessation discussed for >3mins.? @ -No Was critical care preformed (if so, how long)? @ -No Were there social determinants of health that impacted care today? How? (Ho melessness, low income, unemployed, alcoholism, drug addiction, transportation, low edu. Level, literacy, decrease access to med. care, half-way, rehab)? @ -No Was there de-escalation of care discussed even if they declined (Discuss DNR or withdrawal of care, Hospice)? DNR status @ -No What co-morbidities impacted this encounter? (DM, HTN, Smoking, COPD, CAD, Cancer, CVA, ARF, Chemo, Hep., AIDS, mental health diagnosis, sleep apnea, morbid obesity)? @ -None Was patient admitted / discharged? Hospital course, mention meds given and route, prescriptions, significant lab abnormalities, going to OR and other pertinent info. @ -Discharge patient evaluated by EPS patient denies suicidal homicidal patient has open [facility] help. Patient was discharged with hydroxyzine for anxiety. Patient discharged in stable condition with return parameters alee. Undiagnosed new problem with uncertain prognosis? @ -No Drug Therapy requiring intensive monitoring for toxicity (Heparin, Nitro, Insulin, Cardizem)? @ -No Were any procedures done? @ -No Diagnosis/symptom? @ -Anxiety Acute, or Chronic, or Acute on Chronic? @ -Acute Uncomplicated (without systemic symptoms) or Complicated (systemic symptoms)? @ -Complicated Side effects of treatment? @ -No Exacerbation, Progression, or Severe Exacerbation? @ -No Poses a threat to life or bodily function? How? (Chest pain, [place], [place], pneumonia, PE, COPD, DKA, ARF, appy, cholecystitis, CVA, Diverticulitis, Homicidal, Suicidal, threat to staff... and all critical care pts) @ -No - Lab Data Result diagrams: 08/03/24 08:39 08/03/24 08:39 Lab Results 08/03/24 08/03/24 08/03/24 Range/Units 07:30 07:30 08:39 WBC 6.84 (4.50-10.00) 10*3/uL RBC 5.38 H (4.10-5.20) 10*6/uL Hgb 15.3 H (12.0-15.0) g/dL Hct 45.5 (37.2-46.3) % MCV 84.6 (80.0-97.0) fL MCH 28.4 (27.0-32.0) pg MCHC 33.6 (32.0-37.0) g/dL Plt Count 340 (140-440) 10*3/uL MPV 11.4 (9.5-12.2) fL Immature Gran % (Auto) 0.3 % Neutrophils % 68.3 % Lymphocytes % 25.4 % Monocytes % 5.4 % Eosinophils % 0.3 % Basophils % 0.3 % Immature Gran # 0.02 (0.00-0.04) 10*3/uL Neutrophils # 4.67 (1.80-7.70) 10*3/uL Lymphocytes # 1.74 (0.90-5.00) 10*3/uL Monocytes # 0.37 (0.20-1.00) 10*3/uL Eosinophils # 0.02 L (0.04-0.35) 10*3/uL Basophils # 0.02 (0.00-0.10) 10*3/uL Sodium (137-145) mmol/L Potassium (3.5-5.1) mmol/L Chloride (98-107) mmol/L Carbon Dioxide (22-30) mmol/L Anion Gap mmol/L BUN (7-17) mg/dL Creatinine (0.52-1.04) mg/dL Est GFR (CKD-EPI)AfAm (>60 ml/min/1.73 sqM) Est GFR (CKD-EPI)NonAf (>60 ml/min/1.73 sqM) Glucose (74-99) mg/dL Calcium (8.4-10.2) mg/dL Total Bilirubin (0.2-1.3) mg/dL AST (14-36) U/L ALT (4-34) U/L Alkaline Phosphatase (38-126) U/L Total Protein (6.3-8.2) g/dL Albumin (3.5-5.0) g/dL TSH (0.465-4.680) mIU/L Urine HCG, Qual Not Detected (Not Detectd) Urine Opiates Screen Not Detected (NotDetected) Ur Oxycodone Screen Not Detected (NotDetected) Urine Methadone Screen Not Detected (NotDetected) Ur Barbiturates Screen Not Detected (NotDetected) U Tricyclic Antidepress Not Detected (NotDetected) Ur Phencyclidine Scrn Not Detected (NotDetected) Ur Amphetamines Screen Not Detected (NotDetected) U Methamphetamines Scrn Not Detected (NotDetected) U Benzodiazepines Scrn Not Detected (NotDetected) Urine Cocaine Screen Not Detected (NotDetected) U Marijuana (THC) Screen Detected H (NotDetected) Serum Alcohol mg/dL 08/03/24 Range/Units 08:39 WBC (4.50-10.00) 10*3/uL RBC (4.10-5.20) 10*6/uL Hgb (12.0-15.0) g/dL Hct (37.2-46.3) % MCV (80.0-97.0) fL MCH (27.0-32.0) pg MCHC (32.0-37.0) g/dL Plt Count (140-440) 10*3/uL MPV (9.5-12.2) fL Immature Gran % (Auto) % Neutrophils % % Lymphocytes % % Monocytes % % Eosinophils % % Basophils % % Immature Gran # (0.00-0.04) 10*3/uL Neutrophils # (1.80-7.70) 10*3/uL Lymphocytes # (0.90-5.00) 10*3/uL Monocytes # (0.20-1.00) 10*3/uL Eosinophils # (0.04-0.35) 10*3/uL Basophils # (0.00-0.10) 10*3/uL Sodium 140 (137-145) mmol/L Potassium 3.7 (3.5-5.1) mmol/L Chloride 102 (98-107) mmol/L Carbon Dioxide 25 (22-30) mmol/L Anion Gap 13 mmol/L BUN 4 L (7-17) mg/dL Creatinine 0.72 (0.52-1.04) mg/dL Est GFR (CKD-EPI)AfAm >90 (>60 ml/min/1.73 sqM) Est GFR (CKD-EPI)NonAf >90 (>60 ml/min/1.73 sqM) Glucose 84 (74-99) mg/dL Calcium 10.1 (8.4-10.2) mg/dL Total Bilirubin 0.8 (0.2-1.3) mg/dL AST 24 (14-36) U/L ALT 17 (4-34) U/L Alkaline Phosphatase 45 (38-126) U/L Total Protein 7.5 (6.3-8.2) g/dL Albumin 4.9 (3.5-5.0) g/dL TSH 2.550 (0.465-4.680) mIU/L Urine HCG, Qual (Not Detectd) Urine Opiates Screen (NotDetected) Ur Oxycodone Screen (NotDetected) Urine Methadone Screen (NotDetected) Ur Barbiturates Screen (NotDetected) U Tricyclic Antidepress (NotDetected) Ur Phencyclidine Scrn (NotDetected) Ur Amphetamines Screen (NotDetected) U Methamphetamines Scrn (NotDetected) U Benzodiazepines Scrn (NotDetected) Urine Cocaine Screen (NotDetected) U Marijuana (THC) Screen (NotDetected) Serum Alcohol <10 mg/dL Disposition Clinical Impression: Anxiety Disposition: HOME SELF-CARE Condition: Stable Instructions (If sedation given, give patient instructions): Generalized Anxiety Disorder (ED) Additional Instructions: Please return to the Emergency Department if symptoms worsen or any other concerns. Prescriptions: hydrOXYzine pamoate [Vistaril] 25 mg PO TID PRN #20 cap PRN Reason: Anxiety Is patient prescribed a controlled substance at d/c from ED?: No Referrals: None,Stated [REFERRING] - 1-2 days Time of Disposition: 12:10
[2024-08-03 07:53] LABS: Amphetamine Screen,Urine Not Detected (NotDetected); Barbiturate Screen,Urine Not Detected (NotDetected); Benzodiazepines Screen,Urine Not Detected (NotDetected); Cocaine Screen,Urine Not Detected (NotDetected); Methadone Screen, Urine Not Detected (NotDetected); Opiate Screen,Urine Not Detected (NotDetected); Oxycodone Screen, Urine Not Detected (NotDetected); Phencyclidine Screen,Urine Not Detected (NotDetected); Tricyclic Antidepressant,Urine Not Detected (NotDetected); Urn Cannabinoid Scrn Detected (NotDetected)
[2024-08-03] MEDS: SODIUM CHLORIDE 0.9% 1,000 ML IV SCH (08:47)
[2024-08-03 10:04] LABS: HCT 45.5 % (37.2-46.3); HGB 15.3 g/dL (12.0-15.0); MCH 28.4 pg (27.0-32.0); MCHC 33.6 g/dL (32.0-37.0); MCV 84.6 fL (80.0-97.0); Mean Platelet Volume 11.4 fL (9.5-12.2); Neutrophils % (A) 68.3 %; Platelet Count 340 10*3/uL (140-440); RBC 5.38 10*6/uL (4.10-5.20); RDW 14.3 % (11.5-14.5); WBC 6.84 10*3/uL (4.50-10.00)
[2024-08-03 10:05] LABS: Basophils # (A) 0.02 10*3/uL (0.00-0.10); Basophils % (A) 0.3 %; Eosinophils # (A) 0.02 10*3/uL (0.04-0.35); Eosinophils % (A) 0.3 %; Lymphocytes # (A) 1.74 10*3/uL (0.90-5.00); Lymphocytes % (A) 25.4 %; Monocytes # (A) 0.37 10*3/uL (0.20-1.00); Monocytes % (A) 5.4 %; Neutrophils # (A) 4.67 10*3/uL (1.80-7.70)
[2024-08-03 10:15] LABS: African American GFR (CKD) >90 (>60 ml/min/1.73 sqM); Albumin 4.9 g/dL (3.5-5.0); Anion Gap 13 mmol/L; Blood Urea Nitrogen 4 mg/dL (7-17); Calcium 10.1 mg/dL (8.4-10.2); Carbon Dioxide 25 mmol/L (22-30); Chloride 102 mmol/L (98-107); Glucose 84 mg/dL (74-99); Non-African American GFR(CKD) >90 (>60 ml/min/1.73 sqM); Potassium 3.7 mmol/L (3.5-5.1); Sodium 140 mmol/L (137-145); Total Bilirubin 0.8 mg/dL (0.2-1.3); Total Protein 7.5 g/dL (6.3-8.2)
[2024-08-03 10:16] LABS: ALT 17 U/L (4-34); AST 24 U/L (14-36); Alcohol <10 mg/dL; Alkaline Phosphatase 45 U/L (38-126)
[2024-08-03 14:44] VITALS: BP 118/74; PULSE 62; RESP 18; TEMP 98.5
== END 2024-08-03 12:23 | disposition home or self-care (01) ==
LOC: EC 06:29
DX: F41.9 Anxiety disorder, unspecified (principal); F17.290 Nicotine dependence, other tobacco product, uncomplicated; Z88.0 Allergy status to penicillin
CPT/HCPCS: 82075; 36415; 80053; 84443; 85025; 81025; 80306; 99285; 96360; 96361; G0480; 80320

== ENCOUNTER 2024-08-24 22:21 | Emergency (ER) | payer OTHER ==
[2024-08-24 22:25] VITALS: RESP 18
--- NOTE | 2024-08-24 23:24 | ED ---
Psych HPI - General Chief Complaint: Psychiatric Symptoms Stated Complaint: Petition Time Seen by Provider: 08/24/24 22:27 Source: police Mode of arrival: ambulatory - History of Present Illness Initial Comments: This patient is a 24-year-old woman who states that she does have history of anxiety being treated with clonazepam, who presents to have court ordered psychiatric evaluation. The patient has paperwork accompanying that was filed by her sister stating that the patient has been displaying some paranoid, and delusional thought content. Patient reportedly not sleeping. MD Complaint: other -: week(s) Associated Psychiatric Symptoms: depression, delusions History of same: Yes Quality: intermittent Improves With: none Worsens With: none Associated Symptoms: denies other symptoms Treatments Prior to Arrival: none - Related Data Home Medications Medication Instructions Recorded Confirmed Levothyroxine Sodium [Synthroid] 25 mcg PO DAILY 08/03/24 09/06/24 valACYclovir HCL [Valtrex] 500 mg PO DAILY 08/03/24 09/06/24 Previous Rx's Medication Instructions Recorded Melatonin 10 mg PO HS 30 Days #60 tab 09/12/24 Nicotine 14Mg/24Hr Patch [Habitrol] 1 patch TRANSDERM DAILY 14 Days 09/12/24 #14 patch Nicotine 21Mg/24Hr Patch [Habitrol] 1 patch TRANSDERM DAILY 14 Days 09/12/24 #14 patch hydrOXYzine pamoate [Vistaril] 25 mg PO HS 30 Days #30 cap 09/12/24 risperiDONE [RisperDAL] 1 mg PO HS 30 Days #30 tab 09/12/24 Allergies Allergy/AdvReac Type Severity Reaction Status Date / Time amoxicillin Allergy Swelling Verified 09/06/24 11:03 Penicillins Allergy Rash/Hives Verified 09/06/24 11:03 Review of Systems ROS Statement: Those systems with pertinent positive or pertinent negative responses have been documented in the HPI. ROS Other: All systems not noted in ROS Statement are negative. Constitutional: Denies: fever, chills, weakness Eyes: Denies: vision change Respiratory: Denies: cough, dyspnea Cardiovascular: Denies: chest pain, palpitations, syncope Gastrointestinal: Denies: abdominal pain, nausea, vomiting, diarrhea Genitourinary: Denies: dysuria, hematuria Musculoskeletal: Denies: back pain Neurological: Reports: as per HPI. Denies: headache, weakness Psychiatric: Reports: anxiety, depression. Denies: homicidal thoughts, suicidal thoughts Past Medical History Past Medical History: No Reported History Additional Past Medical History / Comment(s): Gestational diabetes History of Any Multi-Drug Resistant Organisms: None Reported Past Surgical History: No Surgical Hx Reported Past Anesthesia/Blood Transfusion Reactions: No Reported Reaction Past Psychological History: No Psychological Hx Reported Smoking Status: Vaper Past Alcohol Use History: None Reported Past Drug Use History: Marijuana - Past Family History Mother Family Medical History: Cancer (Skin) General Exam Limitations: no limitations Course Vital Signs 08/24/24 08/25/24 22:22 00:35 Temperature 98.1 F 98.7 F Pulse Rate 89 62 Respiratory 18 18 Rate Blood Pressure 146/91 135/85 O2 Sat by Pulse 98 100 Oximetry Medical Decision Making - Medical Decision Making The patient has been medically cleared to have EPS evaluation Was pt. sent in by a medical professional or institution (, [facility], [employer], urgent care, hospital, or half-way...) When possible be specific @ -[No] Did you speak to anyone other than the patient for history (EMS, parent, family, police, friend...)? What history was obtained from this source @ -[No] Did you review nursing and triage notes (agree or disagree)? Why? @ -[I reviewed and agree with nursing and triage notes] Were old charts reviewed (outside hosp., previous admission, EMS record, old EKG, old radiological studies, urgent care reports/EKG's, half-way records)? Report findings @ -[No old charts were reviewed] Differential Diagnosis (chest pain, altered mental status, abdominal pain women, abdominal pain men, vaginal bleeding, weakness, fever, dyspnea, syncope, headache, dizziness, GI bleed, back pain, seizure, CVA, palpatations, mental health, musculoskeletal)? @ -[Differential Mental Health Depression, anxiety, bipolar, psychosis, schizophrenia, borderline personality, situational depression, adjustment disorder, behavioral disorder, brain tumor, malingering, substance abuse, encephalopathy, medication reaction, dementia, hypothyroidism, degenerative neurologic disorder, lupus.... This is not meant to be all-inclusive list EKG interpreted by me (3pts min.). @ -[As above] X-rays interpreted by me (1pt min.). @ -[None done] CT interpreted by me (1pt min.). @ -[None done] U/S interpreted by me (1pt. min.). @ -[None done] What testing was considered but not performed or refused? (CT, X-rays, U/S, labs)? Why? @ -[None] What meds were considered but not given or refused? Why? @ -[None] Did you discuss the management of the patient with other professionals (professionals i.e. DrStaci, PA, [employer], lab, RT, psych nurse, social welfare clerk, health and wellness coach, teacher, global safety officer, case sealer)? Give summary @ -[No] Was smoking cessation discussed for >3mins.? @ -[No] Was critical care preformed (if so, how long)? @ -[No] Were there social determinants of health that impacted care today? How? (Homelessness, low income, unemployed, alcoholism, drug addiction, transportation, low edu. Level, literacy, decrease access to med. care, senior care, rehab)? @ -[No] Was there de-escalation of care discussed even if they declined (Discuss DNR or withdrawal of care, Hospice)? DNR status @ -[No] What co-morbidities impacted this encounter? (DM, HTN, Smoking, COPD, CAD, Cancer, CVA, ARF, Chemo, Hep., AIDS, mental health diagnosis, sleep apnea, morbid obesity)? @ -[None] Was patient admitted / discharged? Hospital course, mention meds given and route, prescriptions, significant lab abnormalities, going to OR and other pertinent info. @ -[Patient is a 24-year-old woman here with court order for psychiatric evaluation. The patient seen by EPS. At this point the patient not meeting inpatient criteria and they have establish safety plan that the patient also agrees with. Undiagnosed new problem with uncertain prognosis? @ -[No] Drug Therapy requiring intensive monitoring for toxicity (Heparin, Nitro, Insulin, Cardizem)? @ -[No] Were any procedures done? @ -[No] Diagnosis/symptom? @ -[Acute mood disorder Acute, or Chronic, or Acute on Chronic? @ -[Acute Uncomplicated (without systemic symptoms) or Complicated (systemic symptoms)? @ -[Uncomplicated Side effects of treatment? @ -[No] Exacerbation, Progression, or Severe Exacerbation? @ -[No] Poses a threat to life or bodily function? How? (Chest pain, [place], [place], pneumonia, PE, COPD, DKA, ARF, appy, cholecystitis, CVA, Diverticulitis, Homicidal, Suicid al, threat to staff... and all critical care pts) @ -[No] All treatments are based on ideal body weight as in ED triage - Lab Data Lab Results 08/24/24 Range/Units 23:20 Urine Color Colorless Urine Appearance Clear (Clear) Urine pH 6.5 (5.0-8.0) Ur Specific [place] 1.001 (1.001-1.035) Urine Protein Negative (Negative) Urine Glucose (UA) Negative (Negative) Urine Ketones Negative (Negative) Urine Blood Negative (Negative) Urine Nitrite Negative (Negative) Urine Bilirubin Negative (Negative) Urine Urobilinogen <2.0 (<2.0) mg/dL Ur Leukocyte Esterase Negative (Negative) Urine Opiates Screen Not Detected (NotDetected) Ur Oxycodone Screen Not Detected (NotDetected) Urine Methadone Screen Not Detected (NotDetected) Ur Barbiturates Screen Not Detected (NotDetected) U Tricyclic Antidepress Not Detected (NotDetected) Ur Phencyclidine Scrn Not Detected (NotDetected) Ur Amphetamines Screen Not Detected (NotDetected) U Methamphetamines Scrn Not Detected (NotDetected) U Benzodiazepines Scrn Not Detected (NotDetected) Urine Cocaine Screen Not Detected (NotDetected) U Marijuana (THC) Screen Detected H (NotDetected) Disposition Clinical Impression: Mood disorder Disposition: HOME SELF-CARE Condition: Fair Instructions (If sedation given, give patient instructions): Mood Disorders (ED) Is patient prescribed a controlled substance at d/c from ED?: No Referrals: Kenan Howell MD [Primary Care Provider] - 1-2 days
[2024-08-24 23:30] LABS: Appearance,Urine Clear (Clear); Bilirubin,Urine Negative (Negative); Blood,Urine Negative (Negative); Color,Urine Colorless; Glucose,Urine (UA) Negative (Negative); Ketones,Urine Negative (Negative); Leukocyte Esterase,Urine Negative (Negative); Nitrite,Urine Negative (Negative); PH, Urine 6.5 (5.0-8.0); Protein,Urine Negative (Negative); Specific Gravity,Urine 1.001 (1.001-1.035); Urobilinogen,Urine <2.0 mg/dL (<2.0)
[2024-08-24 23:53] LABS: Amphetamine Screen,Urine Not Detected (NotDetected); Barbiturate Screen,Urine Not Detected (NotDetected); Benzodiazepines Screen,Urine Not Detected (NotDetected); Cocaine Screen,Urine Not Detected (NotDetected); Methadone Screen, Urine Not Detected (NotDetected); Opiate Screen,Urine Not Detected (NotDetected); Oxycodone Screen, Urine Not Detected (NotDetected); Phencyclidine Screen,Urine Not Detected (NotDetected); Tricyclic Antidepressant,Urine Not Detected (NotDetected); Urn Cannabinoid Scrn Detected (NotDetected)
[2024-08-25 00:37] VITALS: BP 135/85; PULSE 62; TEMP 98.7
== END 2024-08-25 00:37 | disposition home or self-care (01) ==
LOC: EC 22:21
DX: F39 Unspecified mood [affective] disorder (principal); F17.290 Nicotine dependence, other tobacco product, uncomplicated; Z88.0 Allergy status to penicillin
CPT/HCPCS: 80306; 81003; 82075; 99284

== ENCOUNTER 2024-09-05 14:01 | Emergency (ER) | payer OTHER ==
[2024-09-05 14:09] VITALS: TEMP 98.3
--- NOTE | 2024-09-05 14:18 | ED ---
Psych HPI - General Chief Complaint: Psychiatric Symptoms Stated Complaint: Mental health Time Seen by Provider: 09/05/24 14:17 Source: patient, RN notes reviewed Mode of arrival: ambulatory - History of Present Illness Initial Comments: This is a calm and cooperative 24-year-old female coming from PCP presenting for increased anxiety. Patient states she was taking clonazepam for the past several weeks, noting improvement in quality of life. Denies she was told to stop the medication culture keep by her psychiatrist via telemed and started on Zoloft for the past 3 days. Patient states she has had increased anxiety and side effects after the abrupt change in medication, stating she feels like she is "going to ". Patient states she did not take her Zoloft today, stating she is worried that her symptoms are side effects from her abrupt cessation of her clonazepam use. Patient denies SI/HI or auditory/visual hallucinations. Patient states she enjoys talking to her therapist but is unhappy with her psychiatrist. Onset/Timin -: days(s) Associated Psychiatric Symptoms: racing thoughts History of same: Yes Quality: constant Improves With: medication, therapy Context: new medication(s) Associated Symptoms: insomnia - Related Data Home Medications Medication Instructions Recorded Confirmed Levothyroxine Sodium [Synthroid] 25 mcg PO DAILY 08/03/24 09/05/24 valACYclovir HCL [Valtrex] 500 mg PO DAILY 08/03/24 09/05/24 Sertraline [Zoloft] See Taper PO DAILY 09/05/24 09/05/24 Allergies Allergy/AdvReac Type Severity Reaction Status Date / Time amoxicillin Allergy Swelling Verified 09/05/24 16:11 Penicillins Allergy Rash/Hives Verified 09/05/24 16:11 Review of Systems ROS Statement: Those systems with pertinent positive or pertinent negative responses have been documented in the HPI. ROS Other: All systems not noted in ROS Statement are negative. Past Medical History Past Medical History: No Reported History Additional Past Medical History / Comment(s): Gestational diabetes History of Any Multi-Drug Resistant Organisms: None Reported Past Surgical History: No Surgical Hx Reported Past Anesthesia/Blood Transfusion Reactions: No Reported Reaction Past Psychological History: No Psychological Hx Reported Smoking Status: Vaper Past Alcohol Use History: None Reported Past Drug Use History: Marijuana - Past Family History Mother Family Medical History: Cancer (Skin) General Exam Limitations: no limitations General appearance: alert, in no apparent distress Head exam: Present: atraumatic, normocephalic, normal inspection Eye exam: Present: normal appearance, PERRL, EOMI. Absent: scleral icterus, conjunctival injection, periorbital swelling ENT exam: Present: normal exam, mucous membranes moist Neck exam: Present: normal inspection. Absent: tenderness, meningismus, lymphadenopathy Respiratory exam: Present: normal lung sounds bilaterally. Absent: respiratory distress, wheezes, rales, rhonchi, stridor, accessory muscle use Cardiovascular Exam: Present: regular rate, normal rhythm, normal heart sounds. Absent: systolic murmur, diastolic murmur, rubs, gallop, clicks GI/Abdominal exam: Present: soft, normal bowel sounds. Absent: distended, tenderness, guarding, rebound, rigid Extremities exam: Present: normal inspection, full ROM, normal capillary refill. Absent: tenderness, pedal edema, joint swelling, calf tenderness Back exam: Present: normal inspection Neurological exam: Present: alert, oriented X3, CN II-XII intact Psychiatric exam: Present: normal affect, anxious. Absent: depressed, agitated, flat affect, manic, suicidal ideation Skin exam: Present: warm, dry, intact, normal color. Absent: rash Course Vital Signs 09/05/24 14:03 Temperature 98.3 F Pulse Rate 70 Respiratory 15 Rate Blood Pressure 194/113 O2 Sat by Pulse 100 Oximetry Medical Decision Making - Medical Decision Making Was pt. sent in by a medical professional or institution (, PA, [employer], urgent care, hospital, or [facility]...) When possible be specific @ -[No] Did you speak to anyone other than the patient for history (EMS, parent, family, police, friend...)? What history was obtained from this source @ -[No] Did you review nursing and triage notes (agree or disagree)? Why? @ -[I reviewed and agree with nursing and triage notes] Were old charts reviewed (outside hosp., previous admission, EMS record, old EKG, old radiological studies, urgent care reports/EKG's, [facility] records)? Report findings @ -ER visit from 08/24/2024 reviewed indicating visit for psych evaluation via court order for delusional paranoia and barricading herself in room due to fear of being drugged. Patient was discharged at that time. Differential Diagnosis (chest pain, altered mental status, abdominal pain women, abdominal pain men, vaginal bleeding, weakness, fever, dyspnea, syncope, headache, dizziness, GI bleed, back pain, seizure, CVA, palpatations, mental health, musculoskeletal)? @ -Differential Mental Health Depression, anxiety, bipolar, psychosis, schizophrenia, borderline personality, situational depression, adjustment disorder, behavioral disorder, brain tumor, malingering, substance abuse, encephalopathy, medication reaction, dementia, hypothyroidism, degenerative neurologic disorder, lupus.... This is not meant to be all-inclusive list EKG interpreted by me (3pts min.). @ -Not done X-rays interpreted by me (1pt min.). @ -[None done] CT interpreted by me (1pt min.). @ -[None done] U/S interpreted by me (1pt. min.). @ -[None done] What testing was considered but not performed or refused? (CT, X-rays, U/S, labs)? Why? @ -[None] What meds were considered but not given or refused? Why? @ -[None] Did you discuss the management of the patient with other professionals (professionals i.e. , PA, [employer], lab, RT, psych nurse, social worker aide, director financial services, teacher, sewage reticulation drafting officer, caseworker)? Give summary @ -[No] Was smoking cessation discussed for >3mins.? @ -[No] Was critical care preformed (if so, how long)? @ -[No] Were there social determinants of health that impacted care today? How? (Homelessness, low income, unemployed, alcoholism, drug addiction, transportation, low edu. Level, literacy, decrease access to med. care, shelter, rehab)? @ -[No] Was there de-escalation of care discussed even if they declined (Discuss DNR or withdrawal of care, Hospice)? DNR status @ -[No] What co-morbidities impacted this encounter? (DM, HTN, Smoking, COPD, CAD, Cancer, CVA, ARF, Chemo, Hep., AIDS, mental health diagnosis, sleep apnea, morbid obesity)? @ -[None] Was patient admitted / discharged? Hospital course, mention meds given and route, prescriptions, significant lab abnormalities, going to OR and other pertinent info. @ -[hospital course] Undiagnosed new problem with uncertain prognosis? @ -[No] Drug Therapy requiring intensive monitoring for toxicity (Heparin, Nitro, Insulin, Cardizem)? @ -[No] Were any procedures done? @ -[No] Diagnosis/symptom? @ -Anxiety Acute, or Chronic, or Acute on Chronic? @ -Acute Uncomplicated (without systemic symptoms) or Complicated (systemic symptoms)? @ -Uncomplicated Side effects of treatment? @ -[No] Exacerbation, Progression, or Severe Exacerbation? @ -[No] Poses a threat to life or bodily function? How? (Chest pain, [place], [place], pneumonia, PE, COPD, DKA, ARF, appy, cholecystitis, CVA, Diverticulitis, Homicidal, Suicidal, threat to staff... and all critical care pts) @ -[No] - Lab Data Lab Results 09/05/24 Range/Units 14:20 Urine Opiates Screen Not Detected (NotDetected) Ur Oxycodone Screen Not Detected (NotDetected) Urine Methadone Screen Not Detected (NotDetected) Ur Barbiturates Screen Not Detected (NotDetected) U Tricyclic Antidepress Not Detected (NotDetected) Ur Phencyclidine Scrn Not Detected (NotDetected) Ur Amphetamines Screen Not Detected (NotDetected) U Methamphetamines Scrn Not Detected (NotDetected) U Benzodiazepines Scrn Not Detected (NotDetected) Urine Cocaine Screen Not Detected (NotDetected) U Marijuana (THC) Screen Not Detected (NotDetected) Disposition Clinical Impression: Acute anxiety Disposition: HOME SELF-CARE Condition: Fair Instructions (If sedation given, give patient instructions): Generalized Anxiety Disorder (ED) Additional Instructions: Follow-up with psychiatrist for ongoing management of anxiety and medication Is patient prescribed a controlled substance at d/c from ED?: No Referrals: Kenan Howell MD [Primary Care Provider] - 1-2 days Time of Disposition: 16:28
[2024-09-05 14:47] LABS: Amphetamine Screen,Urine Not Detected (NotDetected); Barbiturate Screen,Urine Not Detected (NotDetected); Benzodiazepines Screen,Urine Not Detected (NotDetected); Cocaine Screen,Urine Not Detected (NotDetected); Methadone Screen, Urine Not Detected (NotDetected); Opiate Screen,Urine Not Detected (NotDetected); Oxycodone Screen, Urine Not Detected (NotDetected); Phencyclidine Screen,Urine Not Detected (NotDetected); Tricyclic Antidepressant,Urine Not Detected (NotDetected); Urn Cannabinoid Scrn Not Detected (NotDetected)
[2024-09-05 16:33] VITALS: BP 127/80; PULSE 56; RESP 18
== END 2024-09-05 16:54 | disposition home or self-care (01) ==
LOC: EC 14:01
DX: F41.9 Anxiety disorder, unspecified (principal); F17.290 Nicotine dependence, other tobacco product, uncomplicated; Z88.0 Allergy status to penicillin
CPT/HCPCS: 80306; 82075; 99283

== ENCOUNTER 2024-09-06 10:53 | Inpatient (IN) | payer MEDICAID, OTHER ==
--- NOTE | 2024-09-06 12:23 | ED ---
General Adult HPI - General Chief complaint: Psychiatric Symptoms Stated complaint: Mental health eval Time Seen by Provider: 09/06/24 11:28 Source: patient, RN notes reviewed, old records reviewed Mode of arrival: ambulatory Limitations: no limitations - History of Present Illness Initial comments: Patient is a 24-year-old female presents emergency department with delusions. Sent from Dr. Howell's office. Is having increased paranoia affecting her ADLs. States she is convinced people are attempting to drug her and she has called police multiple times and believes it is strongly affecting her ability to live her normal everyday life. Would like to be evaluated by psychiatry. Denies thoughts of wanting hurt herself. Does state that she would want to hurt herself if she does not feel improved but has no current thoughts of wanting to do so. Denies any had any homicidal ideations, times complaints. Denies any hallucinations. - Related Data Home Medications Medication Instructions Recorded Confirmed Levothyroxine Sodium [Synthroid] 25 mcg PO DAILY 08/03/24 09/06/24 valACYclovir HCL [Valtrex] 500 mg PO DAILY 08/03/24 09/06/24 Allergies Allergy/AdvReac Type Severity Reaction Status Date / Time amoxicillin Allergy Swelling Verified 09/06/24 11:03 Penicillins Allergy Rash/Hives Verified 09/06/24 11:03 Review of Systems ROS Statement: Those systems with pertinent positive or pertinent negative responses have been documented in the HPI. Review of Systems: CONST: Denies fever EYES: Denies blurry vision ENT: Denies nasal congestion C/V: Denies Chest pain RESP: Denies shortness of breath GI: Denies abdominal pain : Denies dysuria SKIN: Denies rash. MSK: Denies joint pain. NEURO: Denies headache ROS Other: All systems not noted in ROS Statement are negative. Past Medical History Past Medical History: No Reported History Additional Past Medical History / Comment(s): Gestational diabetes History of Any Multi-Drug Resistant Organisms: None Reported Past Surgical History: No Surgical Hx Reported Past Anesthesia/Blood Transfusion Reactions: No Reported Reaction Past Psychological History: No Psychological Hx Reported Smoking Status: Vaper Past Alcohol Use History: None Reported Past Drug Use History: Marijuana - Past Family History Mother Family Medical History: Cancer (Skin) General Exam - General Exam Comments Initial Comments: General: Appears anxious HEAD: Normal with no signs of head trauma. EYES: EOMI. ENT: Hearing grossly intact. RESPIRATORY: No respiratory distress. C/V: Regular rate and rhythm. ABD: Abdomen is nondistended. EXT: No obvious deformity. SKIN: No rashes or lesions observed on exposed skin. NEURO: Alert and oriented. Limitations: no limitations Course Vital Signs 09/06/24 10:58 Temperature 98.3 F Pulse Rate 60 Respiratory 22 Rate Blood Pressure 152/96 O2 Sat by Pulse 99 Oximetry Medical Decision Making - Medical Decision Making Was pt. sent in by a medical professional or institution (, PA, [employer], urgent care, hospital, or senior living...) When possible be specific @ -No Did you speak to anyone other than the patient for history (EMS, parent, family, police, friend...)? What history was obtained from this source @ -No Did you review nursing and triage notes (agree or disagree)? Why? @ -I reviewed and agree with nursing and triage notes Were old charts reviewed (outside hosp., previous admission, EMS record, old EKG, old radiological studies, urgent care reports/EKG's, senior living records)? Report findings @ -Patient evaluated here yesterday for similar complaints. Ended up being discharged home. Differential Diagnosis (chest pain, altered mental status, abdominal pain women, abdominal pain men, vaginal bleeding, weakness, fever, dyspnea, syncope, headache, dizziness, GI bleed, back pain, seizure, CVA, palpatations, mental health, musculoskeletal)? @ -Differential Mental Health Depression, anxiety, bipolar, psychosis, schizophrenia, borderline personality, situational depression, adjustment disorder, behavioral disorder, brain tumor, malingering, substance abuse, encephalopathy, medication reaction, dementia, hypothyroidism, degenerative neurologic disorder, lupus.... This is not meant to be all-inclusive list EKG interpreted by me (3pts min.). @ -None none X-rays interpreted by me (1pt min.). @ -None done CT interpreted by me (1pt min.). @ -None done U/S interpreted by me (1pt. min.). @ -None done What testing was considered but not performed or refused? (CT, X-rays, U/S, labs)? Why? @ -None What meds were considered but not given or refused? Why? @ -None Did you discuss the management of the patient with other professionals (professionals i.e. , PA, [employer], lab, RT, psych nurse, social work specialist, gas maker, teacher, network security officer, case aide)? Give summary @ -EPS notified of the consult Was smoking cessation discussed for >3mins.? @ -No Was critical care preformed (if so, how long)? @ -No Were there social determinants of health that impacted care today? How? (Homelessness, low income, unemployed, alcoholism, drug addiction, transportation, low edu. Level, literacy, decrease access to med. care, long-term, rehab)? @ -No Was there de-escalation of care discussed even if they declined (Discuss DNR or withdrawal of care, Hospice)? DNR status @ -No What co-morbidities impacted this encounter? (DM, HTN, Smoking, COPD, CAD, Cancer, CVA, ARF, Chemo, Hep., AIDS, mental health diagnosis, sleep apnea, mo rbid obesity)? @ -None Was patient admitted / discharged? Hospital course, mention meds given and route, prescriptions, significant lab abnormalities, going to OR and other pertinent info. @ -Patient presents for worsening delusions. Presents as a revisit for reevaluation by psychiatry. Sent by her PCP Dr. Howell. Vitals are within acceptable limits. BAT is 0. UDS is pending. Patient is medically cleared for evaluation by psychiatry. Disposition pending psychiatric evaluation. EPS notified of the consult. EPS evaluated the patient and determined that she does not meet inpatient cri teria. Patient admitted to inpatient psychiatry. Undiagnosed new problem with uncertain prognosis? @ -No Drug Therapy requiring intensive monitoring for toxicity (Heparin, Nitro, Insulin, Cardizem)? @ -No Were any procedures done? @ -No Diagnosis/symptom? @ -Suicidal ideations, delusions Acute, or Chronic, or Acute on Chronic? @ -Acute Uncomplicated (without systemic symptoms) or Complicated (systemic symptoms)? @ -Complicated Side effects of treatment? @ -None Exacerbation, Progression, or Severe Exacerbation] @ -No Poses a threat to life or bodily function? @ -Yes - Lab Data Lab Results 09/06/24 Range/Units 11:59 Urine Opiates Screen Not Detected (NotDetected) Ur Oxycodone Screen Not Detected (NotDetected) Urine Methadone Screen Not Detected (NotDetected) Ur Barbiturates Screen Not Detected (NotDetected) U Tricyclic Antidepress Not Detected (NotDetected) Ur Phencyclidine Scrn Not Detected (NotDetected) Ur Amphetamines Screen Not Detected (NotDetected) U Methamphetamines Scrn Not Detected (NotDetected) U Benzodiazepines Scrn Not Detected (NotDetected) Urine Cocaine Screen Not Detected (NotDetected) U Marijuana (THC) Screen Detected H (NotDetected) Disposition Clinical Impression: Suicidal ideation, Delusions Disposition: TRANSFER TO PSYCH HOSP/UNIT Condition: Stable Referrals: Kenan Howell MD [Primary Care Provider] - 1-2 days
[2024-09-06 13:51] LABS: Amphetamine Screen,Urine Not Detected (NotDetected); Barbiturate Screen,Urine Not Detected (NotDetected); Benzodiazepines Screen,Urine Not Detected (NotDetected); Cocaine Screen,Urine Not Detected (NotDetected); Methadone Screen, Urine Not Detected (NotDetected); Opiate Screen,Urine Not Detected (NotDetected); Oxycodone Screen, Urine Not Detected (NotDetected); Phencyclidine Screen,Urine Not Detected (NotDetected); Tricyclic Antidepressant,Urine Not Detected (NotDetected); Urn Cannabinoid Scrn Detected (NotDetected)
[2024-09-06] MEDS ORDERED: MAGNESIUM HYDROXIDE 2,400 MG/30 ML CUP PO PRN (17:24)
[2024-09-06] MEDS ORDERED: ACETAMINOPHEN TAB 325 MG TAB PO PRN (17:24)
[2024-09-06] MEDS ORDERED: MAG HYDROX/AL HYDROX/SIMETH 355 ML BOTTLE PO PRN (17:24)
[2024-09-06] MEDS ORDERED: HALOPERIDOL LACTATE 5 MG/ML 1 ML VIAL IM PRN (17:25)
[2024-09-06] MEDS ORDERED: LORazepam 1 MG TAB PO PRN (17:25)
[2024-09-06] MEDS ORDERED: LORazepam 2 MG/ML INJ IM PRN (17:25)
[2024-09-06 18:33] LABS: Appearance,Urine Clear (Clear); Bilirubin,Urine Negative (Negative); Blood,Urine Negative (Negative); Color,Urine Colorless; Glucose,Urine (UA) Negative (Negative); Ketones,Urine Negative (Negative); Leukocyte Esterase,Urine Negative (Negative); Nitrite,Urine Negative (Negative); PH, Urine 6.5 (5.0-8.0); Protein,Urine Negative (Negative); Specific Gravity,Urine 1.002 (1.001-1.035); Urobilinogen,Urine <2.0 mg/dL (<2.0)
[2024-09-06] MEDS: haloperidoL 5 MG TAB PO PRN (21:15)
[2024-09-07 07:26] LABS: Basophils # (A) 0.03 10*3/uL (0.00-0.10); Basophils % (A) 0.5 %; Eosinophils # (A) 0.05 10*3/uL (0.04-0.35); Eosinophils % (A) 0.8 %; HCT 40.7 % (37.2-46.3); HGB 13.7 g/dL (12.0-15.0); Lymphocytes # (A) 2.24 10*3/uL (0.90-5.00); MCH 28.4 pg (27.0-32.0); MCHC 33.7 g/dL (32.0-37.0); MCV 84.3 fL (80.0-97.0); Monocytes # (A) 0.34 10*3/uL (0.20-1.00); Monocytes % (A) 5.5 %; Neutrophils # (A) 3.55 10*3/uL (1.80-7.70); Platelet Count 279 10*3/uL (140-440); RBC 4.83 10*6/uL (4.10-5.20); RDW 14.6 % (11.5-14.5); WBC 6.22 10*3/uL (4.50-10.00)
[2024-09-07 07:39] LABS: ALT 17 U/L (4-34); AST 19 U/L (14-36); African American GFR (CKD) >90 (>60 ml/min/1.73 sqM); Albumin 4.2 g/dL (3.5-5.0); Alkaline Phosphatase 37 U/L (38-126); Anion Gap 12 mmol/L; Blood Urea Nitrogen 4 mg/dL (7-17); Carbon Dioxide 21 mmol/L (22-30); Chloride 105 mmol/L (98-107); Glucose 84 mg/dL (74-99); Non-African American GFR(CKD) >90 (>60 ml/min/1.73 sqM); Potassium 4.2 mmol/L (3.5-5.1); Sodium 138 mmol/L (137-145); Total Bilirubin 0.4 mg/dL (0.2-1.3); Total Protein 6.4 g/dL (6.3-8.2)
[2024-09-07] MEDS: NICOTINE 14MG/24HR PATCH TRANSDERM SCH (09:36)
[2024-09-07 11:07] VITALS: BMI 29.1
[2024-09-07] MEDS: valACYclovir HCL 500 MG TAB PO SCH (12:39)
[2024-09-07] MEDS: LEVOTHYROXINE 25 MCG TAB PO SCH (12:39)
[2024-09-07] MEDS: risperiDONE 0.5 MG TAB PO SCH (13:21)
[2024-09-07] MEDS: TRIAMCINOLONE 0.1% CREAM 80 GM TUBE TOPICAL SCH (13:26)
--- NOTE | 2024-09-07 13:26 | P.HP ---
Psychiatric H&P - . H&P Date: 09/07/24 History & Physical: Allergies Allergy/AdvReac Type Severity Reaction Status Date / Time amoxicillin Allergy Swelling Verified 09/06/24 11:03 Penicillins Allergy Rash/Hives Verified 09/06/24 11:03 Vital Signs Temp 97.7 F 09/06/24 21:00 Pulse 64 09/06/24 21:00 Resp 18 09/06/24 21:00 BP 126/84 09/06/24 21:00 Pulse Ox 100 09/06/24 21:00 FiO2 Intake & Output 09/06/24 09/07/24 09/07/24 18:59 06:59 18:59 Weight 72.303 kg Laboratory Last Values WBC 6.22 10*3/uL (4.50-10.00) 09/07/24 07:07 RBC 4.83 10*6/uL (4.10-5.20) 09/07/24 07:07 Hgb 13.7 g/dL (12.0-15.0) 09/07/24 07:07 Hct 40.7 % (37.2-46.3) 09/07/24 07:07 MCV 84.3 fL (80.0-97.0) 09/07/24 07:07 MCH 28.4 pg (27.0-32.0) 09/07/24 07:07 MCHC 33.7 g/dL (32.0-37.0) 09/07/24 07:07 Plt Count 279 10*3/uL (140-440) 09/07/24 07:07 MPV 11.0 fL (9.5-12.2) 09/07/24 07:07 Immature Gran % (Auto) 0.2 % 09/07/24 07:07 Neutrophils % 57.0 % 09/07/24 07:07 Lymphocytes % 36.0 % 09/07/24 07:07 Monocytes % 5.5 % 09/07/24 07:07 Eosinophils % 0.8 % 09/07/24 07:07 Basophils % 0.5 % 09/07/24 07:07 Immature Gran # 0.01 10*3/uL (0.00-0.04) 09/07/24 07:07 Neutrophils # 3.55 10*3/uL (1.80-7.70) 09/07/24 07:07 Lymphocytes # 2.24 10*3/uL (0.90-5.00) 09/07/24 07:07 Monocytes # 0.34 10*3/uL (0.20-1.00) 09/07/24 07:07 Eosinophils # 0.05 10*3/uL (0.04-0.35) 09/07/24 07:07 Basophils # 0.03 10*3/uL (0.00-0.10) 09/07/24 07:07 Sodium 138 mmol/L (137-145) 09/07/24 07:07 Potassium 4.2 mmol/L (3.5-5.1) 09/07/24 07:07 Chloride 105 mmol/L (98-107) 09/07/24 07:07 Carbon Dioxide 21 mmol/L (22-30) L 09/07/24 07:07 Anion Gap 12 mmol/L 09/07/24 07:07 BUN 4 mg/dL (7-17) L 09/07/24 07:07 Creatinine 0.60 mg/dL (0.52-1.04) 09/07/24 07:07 Est GFR (CKD-EPI)AfAm >90 (>60 ml/min/1.73 sqM) 09/07/24 07:07 Est GFR (CKD-EPI)NonAf >90 (>60 ml/min/1.73 sqM) 09/07/24 07:07 Glucose 84 mg/dL (74-99) 09/07/24 07:07 Calcium 10.0 mg/dL (8.4-10.2) 09/07/24 07:07 Total Bilirubin 0.4 mg/dL (0.2-1.3) 09/07/24 07:07 AST 19 U/L (14-36) 09/07/24 07:07 ALT 17 U/L (4-34) 09/07/24 07:07 Alkaline Phosphatase 37 U/L (38-126) L 09/07/24 07:07 Total Protein 6.4 g/dL (6.3-8.2) 09/07/24 07:07 Albumin 4.2 g/dL (3.5-5.0) 09/07/24 07:07 TSH 3.810 mIU/L (0.465-4.680) 09/07/24 07:07 Urine Color Colorless 09/06/24 11:59 Urine Appearance Clear (Clear) 09/06/24 11:59 Urine pH 6.5 (5.0-8.0) 09/06/24 11:59 Ur Specific Novinger 1.002 (1.001-1.035) 09/06/24 11:59 Urine Protein Negative (Negative) 09/06/24 11:59 Urine Glucose (UA) Negative (Negative) 09/06/24 11:59 Urine Ketones Negative (Negative) 09/06/24 11:59 Urine Blood Negative (Negative) 09/06/24 11:59 Urine Nitrite Negative (Negative) 09/06/24 11:59 Urine Bilirubin Negative (Negative) 09/06/24 11:59 Urine Urobilinogen <2.0 mg/dL (<2.0) 09/06/24 11:59 Ur Leukocyte Esterase Negative (Negative) 09/06/24 11:59 Urine HCG, Qual Not Detected (Not Detectd) 09/06/24 11:59 Urine Opiates Screen Not Detected (NotDetected) 09/06/24 11:59 Ur Oxycodone Screen Not Detected (NotDetected) 09/06/24 11:59 Urine Methadone Screen Not Detected (NotDetected) 09/06/24 11:59 Ur Barbiturates Screen Not Detected (NotDetected) 09/06/24 11:59 U Tricyclic Antidepress Not Detected (NotDetected) 09/06/24 11:59 Ur Phencyclidine Scrn Not Detected (NotDetected) 09/06/24 11:59 Ur Amphetamines Screen Not Detected (NotDetected) 09/06/24 11:59 U Methamphetamines Scrn Not Detected (NotDetected) 09/06/24 11:59 U Benzodiazepines Scrn Not Detected (NotDetected) 09/06/24 11:59 Urine Cocaine Screen Not Detected (NotDetected) 09/06/24 11:59 U Marijuana (THC) Screen Detected (NotDetected) H 09/06/24 11:59 SARS-CoV-2 (PCR) Not Detected (Not Detectd) 09/06/24 14:39 09/07/24 10:27 IDENTIFYING DATA: Patient is a 24-year-old female, she is single she has 2 kids she lives with her kids and 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 Apparently patient has been making claims that people have been trying to drug her and poison her. She apparently has called the police multiple times. Urine drug screen is positive for marijuana. Patient was admitted yesterday voluntarily mental health unit, seen today for psychiatric admission. Patient claims that she was believing that people were "drugging me" and claims that she did not have a evidence for this. Claims that she has been off her benzodiaz epine Klonopin for a couple months. Claims that she has made several police reports that even thought about going to [place] to get her hair tested for drugs. Claims that she stopped taking her benzodiazepine Klonopin about 2 weeks ago and claims that her psychiatrist switched her to Zoloft. Claims that she was on it for only about 3 days and then discontinued it. Claims that she has been sleeping on and off, appetite is fair.. Patient denies any suicidal or homicidal ideations intent or plan. At this time patient denies any auditory or visual hallucinations. Patient denies any flight of ideas racing thoughts and increased in goal directed behavior. Patient admits to using vague nicotine products, claims that she quit marijuana several months ago however it is still in her urine. PAST PSYCHIATRIC HISTORY: Patient has a history of panic disorder and substance abuse. Patient claims that she was previously on Zoloft and Klonopin. Patient denies any previous psychiatric hospitalizations. Claims that she go to [facility] and sees her psychiatrist Dr. Juarez. Patient denies any history of suicide attempts in the past. PMH: Past Medical History: No Reported History Additional Past Medical History / Comment(s): Gestational diabetes History of Any Multi-Drug Resistant Organisms: None Reported Past Surgical History: No Surgical Hx Reported Past Anesthesia/Blood Transfusion Reactions: No Reported Reaction Past Psychological History: No Psychological Hx Reported Smoking Status: Vaper Past Alcohol Use History: None Reported Past Drug Use History: Marijuana ALLERGIES: as per EMR CHEMICAL DEPENDENCY HISTORY: as per HPI FAMILY PSYCHIATRIC/SUBSTANCE USE HISTORY: She claims that she believes her mother has schizophrenia. Claims that she thinks other people in her family may have psychosis as well. SOCIAL HISTORY: Patient was born and raised in [facility], claims that she finished her GED in school. 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 MENTAL STATUS EXAM: General Appearance: Patient appears to be stated age is alert, directable, and attempts to cooperate. Suspicious at times. Patient appears to have fair hygiene and grooming. Behavior: Patient is seated without any agitated behavior. Suspicious at times. Endorsing paranoia Speech: Patient's speech is fluent and nonpressured. Mood/Affect: Patient reports their mood is "okay", affect is congruent and constricted. Suicidality/Homicidality: Patient denies having any homicidal ideation intent or plan. Denies any suicidal ideations intent or plan Perceptions: Patient denies any visual hallucinations and denies any auditory hallucinations Though content/process: There is no evidence of any delusional thought content and thought process is linear and goal-directed. Focused on her paranoia about people drugging her Memory and concentration: AOX3, grossly intact for the purposes of this session. Can spell "WORLD" backwards Judgment and insight: Poor STRENGTHS/WEAKNESSES: strength is that patient is resilient. Weakness is that patient has poor judgment and is impulsive INTELLECT: Average IMPRESSIONS: Psychosis unspecified Cannabis use disorder Nicotine dependence PLAN: -Patient is admitted under voluntary status to MHU for stabilization of psychiatric symptoms and safety. Patient has signed adult voluntary form and has signed medication consent and is placed in patient's chart. -Medications : Risperdal 0.5 mg twice daily for psychosis, Vistaril 50 mg nightly for sleep/anxiety -Ativan and Haldol PRN for agitation/aggression -Patient was counselled on substance abuse and desired to cut back on use. Patient states they do not want rehab and wish to cut back subtance use on their own -Patient was informed of the risks, benefits and side effects of the medications and patient verbally consented to taking the medications. Patient signed med consent form and was placed in chart. Patient was offered medication information and declined it -Internal Medicine consult to perform medical evaluation and physical. -NRT -nicotine patch -SW on board for discharge planning. Encourage patient to participate in groups to work on coping skills. 09/07/24 13:22
[2024-09-07 16:14] LABS: Chol/HDL Ratio 2.43 Ratio; LDL Cholesterol,Calculated 50.8 mg/dL (0.0-131.0)
[2024-09-07] MEDS ORDERED: risperiDONE 1 MG TAB PO SCH (21:00)
[2024-09-07] MEDS: hydrOXYzine pamoate 25 MG CAP PO SCH (21:15)
[2024-09-07] MEDS: MELATONIN 5 MG TABLET PO SCH (22:08)
--- NOTE | 2024-09-08 00:30 | CONS ---
CONSULTATION CHIEF COMPLAINT: Paranoid delusions. HISTORY OF PRESENT ILLNESS: This lady presented to the emergency room because she has been having difficulty with paranoid delusions. She was not particularly depressed and she was not suicidal. She has been healthy otherwise. REVIEW OF SYSTEMS: She denies any headaches, visual changes, chest pain, shortness of breath, abdominal pain, etc. Past medical history, family history, personal and social histories are otherwise unremarkable. She is not allergic to any medication. She has been on thyroid and sertraline. Somebody told her that sertraline would help her with her paranoid delusions. Apparently, she is seeing a counselor. She does smoke. PHYSICAL EXAMINATION: VITAL SIGNS: Normal. HEAD, EARS, EYES, NOSE, MOUTH AND THROAT: Normal. CHEST: Clear. CARDIAC: Normal. ABDOMEN: Soft and nontender. EXTREMITIES: Normal. IMPRESSION: 1. Paranoid delusions. 2. Hypothyroidism. RECOMMENDATION: Recommendations none at this time. Thank you respectfully. MAYTE / SARAHI: [id number] /
--- NOTE | 2024-09-08 12:22 | P.PN ---
Progress Note - Text Progress Note Date: 09/08/24 Interval history: Patient was seen today for psychiatric follow-up. Patient was in a group kalyn ier today. She claims that she is doing a bit better with the Risperdal 1 to continue taking it. Claims that she is feeling less paranoid today about other people. She appeared to be more future oriented today. Claims that her mood and anxiety been mildly improved since yesterday. Not reporting any side effects at this time. Things that she is eating well. Claims that she slept fairly throughout the night however did feel groggy this morning, wanted her Vistaril reduced in dose. Denying any suicidal or homicidal ideations intent or plan denying any auditory or visual hallucinations today. MENTAL STATUS EXAM: General Appearance: Patient appears to be stated age is alert, directable, and attempts to cooperate. Patient appears to have fair hygiene and grooming. Behavior: Patient is seated without any agitated behavior. less Endorsing paranoia Speech: Patient's speech is fluent and nonpressured. Mood/Affect: Patient reports their mood is "ok", affect is congruent and constricted. Suicidality/Homicidality: Patient denies having any homicidal ideation intent or plan. Denies any suicidal ideations intent or plan Perceptions: Patient denies any visual hallucinations and denies any auditory hallucinations Though content/process: There is no evidence of any delusional thought content and thought process is linear and goal-directed. Less focused on paranoia today. Memory and concentration: AOX3, grossly intact for the purposes of this session Judgment and insight: Poor, improving mildly IMPRESSIONS: Psychosis unspecified Cannabis use disorder Nicotine dependence PLAN: -Patient is admitted under voluntary status to MHU for stabilization of psychiatric symptoms and safety. Patient has signed adult voluntary form and has signed medication consent and is placed in patient's chart. -Medications : Risperdal 0.5 mg twice daily for psychosis, decrease Vistaril 25 mg nightly for sleep/anxiety, increase melatonin to 10 mg nightly for sleep -Ativan and Haldol PRN for agitation/aggression -NRT -nicotine patch -SW on board for discharge planning. Encourage patient to participate in groups to work on coping skills. Hopeful for discharge Thursday if patient is improving.
[2024-09-08] MEDS: NICOTINE 21MG/24HR PATCH TRANSDERM SCH (13:09)
[2024-09-08] MEDS: hydrOXYzine pamoate 25 MG CAP PO SCH (21:30)
[2024-09-08] MEDS: MELATONIN 5 MG TABLET PO SCH (21:33)
--- NOTE | 2024-09-09 11:47 | P.PN ---
Progress Note - Text Progress Note Date: 09/09/24 Interval history: Patient was seen today for psychiatric follow-up. Patient was in a group kalyn ier today. Patient claims that she has a feeling of a groggy in the morning, was asking about the different medications and what may be contributing at to it. We spoke about changing the timing of the dose of the Risperdal to nighttime to see if that reduces the grogginess, she is agreeable to try this. Not reporting any other side effects at this time. Has been going to groups, appears to be less focused and preoccupied with her paranoia. Claims that she is starting to trust other people. Has been eating fair, showering. Denying any suicidal or homicidal ideations intent or plan denying any auditory or visual hallucinations today. MENTAL STATUS EXAM: General Appearance: Patient appears to be stated age is alert, directable, and attempts to cooperate. Patient appears to have fair hygiene and grooming. Behavior: Patient is seated without any agitated behavior. less Endorsing paranoia Speech: Patient's speech is fluent and nonpressured. Mood/Affect: Patient reports their mood is "good", affect is congruent and constricted. improving mildly Suicidality/Homicidality: Patient denies having any homicidal ideation intent or plan. Denies any suicidal ideations intent or plan Perceptions: Patient denies any visual hallucinations and denies any auditory hallucinations Though content/process: There is no evidence of any delusional thought content and thought process is linear and goal-directed. Less focused on paranoia today. Memory and concentration: AOX3, grossly intact for the purposes of this session Judgment and insight: improving mildly IMPRESSIONS: Psychosis unspecified Cannabis use disorder Nicotine dependence PLAN: -Patient is admitted under voluntary status to MHU for stabilization of psychiatric symptoms and safety. Patient has signed adult voluntary form and has signed medication consent and is placed in patient's chart. -Medications : change dosing on Risperdal po to 1 mg qhs for psychosis, Vistaril 25 mg nightly for sleep/anxiety, melatonin 10 mg nightly for sleep -Ativan and Haldol PRN for agitation/aggression -NRT -nicotine patch -SW on board for discharge planning. Encourage patient to participate in groups to work on coping skills. Hopeful for discharge Thursday if patient is improving.
[2024-09-09] MEDS: IBUPROFEN 600 MG TAB PO PRN (17:49)
[2024-09-09] MEDS: risperiDONE 1 MG TAB PO SCH (20:57)
--- NOTE | 2024-09-10 12:00 | P.PN ---
Progress Note - Text Progress Note Date: 09/10/24 Dictation was produced using [employer] dictation software. Please excuse any grammatical, word or spelling errors. Interval history: Patient was seen attending group and was directable and agreeable to speak with the repairer typewriter in the office for psychiatric follow-up. The patient states that she is feeling is feeling great, states that she was enjoying the group, reported her mood " better". States that she slept well last night, it is reported that she slept 6 hours overnight. She has been eating good. States that depression and anxiety at the low side, she rated depression at 1/10, and anxiety at 2/10, mainly due to having a roommate. She denied any current SI/HI, or self harm. She denied any current AVH, or paranoia. She was able to reflect on the reasons for coming to the hospital, states that she was paranoia was severe prior to being on medications. She states that she has been compliant with her medications, and denied any side effects, states that she is not groggy today since and feels better since the medication changed to the night time. States that she misses her kids and is looking forward to going back home. She denied any muscle stiffness, rigidity, abnormal movements, or drooling. MENTAL STATUS EXAM: General Appearance: Patient appears to be stated age is alert, directable, and attempts to cooperate. Patient appears to have fair hygiene and grooming. Behavior: Patient is seated without any agitated behavior. Denied paranoia today Speech: Patient's speech is fluent and nonpressured. Mood/Affect: Patient reports their mood is "better", affect is congruent and constricted. improving mildly Suicidality/Homicidality: Patient denies having any homicidal ideation intent or plan. Denies any suicidal ideations intent or plan Perceptions: Patient denies any visual hallucinations and denies any auditory hallucinations Though content/process: There is no evidence of any delusional thought content and thought process is linear and goal-directed. Less focused on paranoia today. Memory and concentration: AOX3, grossly intact for the purposes of this session Judgment and insight: improving mildly IMPRESSIONS: Psychosis unspecified Cannabis use disorder Nicotine dependence Assessment/Plan: Continue with current diagnosis. Patient continues to meet toy chavarria for inpatient psychiatric admission for symptom stabilization and safety. Patient will be maintained on current psychotropic medication regimen which include Risperdal 1 mg p.o. at bedtime, Vistaril 25 mg p.o. at bedtime and melatonin 10 mg p.o. hs. Monitor for medication compliance and for any psychotropic medication side effects, she denied any current muscle stiffness, rigidity, abnormal movement, or drooling. Will continue to monitor ongoing response to treatment. Encouraged participation in milieu.
--- NOTE | 2024-09-11 10:14 | P.PN ---
Progress Note - Text Progress Note Date: 09/11/24 Dictation was produced using [employer] dictation software. Please excuse any grammatical, word or spelling errors. Interval history: Patient was seen in group room and was directable and agreeable to speak with the health science writer in the office for psychiatric follow-up. The patient states that she is feeling "great," today, states that she is excited about going back home, states that she is missing her children. States that depression and anxiety are at the low side, she rated depression at 0/10, and anxiety at 1/10. She denied any current SI/HI or self harm. She denied any AVH, and reported that she does not have any paranoia at this time. States that sleep and appetite are going well. She has been compliant with her medication, and she denied current side effects, denied any groggy feeling anymore since switching the medication to the night time. She denied any muscle stiffness, rigidity, abnormal movement or drooling. She reported that she feels safe in the unit, tending to her ADL, getting along well with everyone in the unit. Denied any issues with aggression or agitation. States that she wants to speak with the social service director about her outpatient appointment. States that she would like to see a therapist more often. MENTAL STATUS EXAM: General Appearance: Patient appears to be stated age is alert, directable, and attempts to cooperate. Patient appears to have fair hygiene and grooming. Behavior: Patient is seated without any agitated behavior. Denied paranoia today Speech: Patient's speech is fluent and nonpressured. Mood/Affect: Patient reports their mood is "great", affect is congruent and constricted. improving mildly Suicidality/Homicidality: Patient denies having any homicidal ideation intent or plan. Denies any suicidal ideations intent or plan Perceptions: Patient denies any visual hallucinations and denies any auditory hallucinations Though content/process: There is no evidence of any delusional thought content and thought process is linear and goal-directed. Denied any paranoia today Memory and concentration: AOX3, grossly intact for the purposes of this session Judgment and insight: improving mildly IMPRESSIONS: Psychosis unspecified Cannabis use disorder Nicotine dependence Assessment/Plan: Continue with current diagnosis. Patient continues to meet criteria for inpatient psychiatric admission for symptom stabilization and safety. Patient will be maintained on current psychotropic medication regimen which include Risperdal 1 mg p.o. at bedtime, Vistaril 25 mg p.o. at bedtime and melatonin 10 mg p.o. hs. No changes today monitor for medication compliance and for any psychotropic medication side effects, she denied any current muscle stiffness, rigidity, abnormal movement, or drooling. Will continue to monitor ongoing response to treatment. Encouraged participation in milieu.
[2024-09-11 22:05] VITALS: RESP 17
[2024-09-12 08:54] VITALS: BP 129/79; PULSE 73; TEMP 97.8
--- NOTE | 2024-09-12 10:53 | P.DS ---
Providers Date of admission: 09/06/24 16:59 Expected date of discharge: 09/12/24 Attending physician: Bhanu Douglas MD Consults: 09/06/24 17:24 Consult Physician Routine Consulting Provider: Kenan Howell Consult Reason/Comments: History and Physical, New Admission Do you want consulting provider notified?: Yes Primary care physician: Kenan Howell - Discharge Diagnosis(es) (1) Unspecified psychosis Current Visit: Yes Status: Acute Priority: High (2) Cannabis use disorder Current Visit: Yes Status: Acute Priority: Medium (3) Nicotine dependence Current Visit: Yes Status: Acute Priority: Low Hospital Course: Admission HPI: Admission note was completed by casualty underwriter "patient is a 24-year-old female, she is single she has 2 kids she lives with her kids and apartment 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 Patient presented to the hospital from her primary care physician's office. Apparently patient has been making claims that people have been trying to drug her and poison her. She apparently has called the police multiple times. Urine drug screen is positive for marijuana. Patient was admitted yesterday voluntarily mental health unit, seen today for psychiatric admission. Patient claims that she was believing that people were "drugging me" and claims that she did not have a evidence for this. Claims that she has been off her benzodiazepine Klonopin for a couple months. Claims that she has made several police reports that even thought about going to [place] to get her hair tested for drugs. Claims that she stopped taking her benzodiazepine Klonopin about 2 weeks ago and claims that her psychiatrist switched her to Zoloft. Claims that she was on it for only about 3 days and then discontinued it. Claims that she has been sleeping on and off, appetite is fair.. Patient denies any suicidal or homicidal ideations intent or plan. At this time patient denies any auditory or visual hallucinations. Patient denies any flight of ideas racing thoughts and increased in goal directed behavior. Patient admits to using vague nicotine products, claims that she quit marijuana several months ago however it is still in her urine." Hospital course: Upon admission to the unit patient was directable and agreeable to commence treatment and signed adult voluntary form. Patient was initially paranoid however with time and treatment patient got along well with other patients on the unit and followed unit protocol. Patient was compliant with the medications and denied any side effects throughout hospital course. Patient was started on Risperdal increased to a dose of 1 mg nightly for psychosis/paranoia, Vistaril 25 mg nightly for sleep/anxiety, melatonin 10 mg nightly for sleep. Patient spoke of her stressors and engaged in therapy both group/activity therapy. Patient was also seen by medical team for history and physical exam. Throughout the course of the hospitalization patient gradually improved with regards to mood, anxiety, psychosis, sleep and returned back to their baseline level of functioning. On the day of discharge patient denied any suicidal or homicidal ideations intent or plan denied any auditory or visual hallucinations. Patient endorsed wanting to live for their health and family. The patient denied any access to guns or weapons. Patient denied any paranoia and did not endorse any delusions. Patient does have a significant history of substance abuse and was counseled on abstaining from all substances including alcohol and marijuana. Patient elected to do outpatient substance use treatment program through their outpatient provider. Patient was also counseled on the medications and need for regular compliance and was encouraged to follow-up with their outpatient appointment for mental health and also for primary care. Prior to discharge a family meeting will be arranged by social economist to answer any questions and ensure safety upon discharge incuding making sure that guns/weapons are either removed from the home or locked away. Mental status exam: General Appearance: Patient appears to be stated age is alert, pleasant, and cooperative. Patient is in no acute distress and has improved hygiene and grooming Behavior: Patient is calmly seated without any agitated behavior. Speech: Patient's speech is fluent and nonpressured. Mood/Affect: Patient reports their mood is "good", affect is congruent and euthymic. Suicidality/Homicidality: Patient denies having any suicidal or homicidal ideation intent or plan. Perceptions: Patient denies any auditory or visual hallucinations. Though content/process: There is no evidence of any delusional thought content and thought process is linear and goal-directed. More future oriented Memory and concentration: AOX3, grossly intact for the purposes of this session. Can spell "WORLD" backwards correctly. Judgment and insight: improved with guarded prognosis Impression: Psychosis unspecified Cannabis use disorder Nicotine dependence Plan: -Continue with discharge today as patient has improved and stabilized psychiatrically and is not currently an imminent threat to themself and/or others. Patient will remain at chronically elevated risk for harm to self and/or others due to their impulsivity and substance abuse. -Continue medications: Risperdal 1 mg nightly for psychosis/mood stabilization, Vistaril 25 mg nightly for sleep/anxiety, melatonin 10 mg nightly for sleep -Patient was counseled on the need for medication compliance and appropriate follow-up at mental health and also primary care for medical issues. Patient verbalized understanding and agreed. -Social work to help coordinate patients discharge today. also to ensure safe home environment that guns/weapons are either removed from the home or locked away. Social work also to arrange for patients follow up appointments with [facility] for psychiatric care along with follow up with primary care provider. -Patient counseled on abstaining from recreational drugs and marijuana and alcohol. Was informed/educated on the adverse effects on their physical and ment al health. Patient verbally agreed and understood. Patient was offered substance abuse treatment however declined at this time. -Patient was instructed to return to the hospital or seek immediate medical care if their psychiatric or medical symptoms do worsen or reoccur. Allergies Allergy/AdvReac Type Severity Reaction Status Date / Time amoxicillin Allergy Swelling Verified 09/06/24 11:03 Penicillins Allergy Rash/Hives Verified 09/06/24 11:03 Laboratory Results WBC 6.22 10*3/uL (4.50-10.00) 09/07/24 07:07 RBC 4.83 10*6/uL (4.10-5.20) 09/07/24 07:07 Hgb 13.7 g/dL (12.0-15.0) 09/07/24 07:07 Hct 40.7 % (37.2-46.3) 09/07/24 07:07 MCV 84.3 fL (80.0-97.0) 09/07/24 07:07 MCH 28.4 pg (27.0-32.0) 09/07/24 07:07 MCHC 33.7 g/dL (32.0-37.0) 09/07/24 07:07 Plt Count 279 10*3/uL (140-440) 09/07/24 07:07 MPV 11.0 fL (9.5-12.2) 09/07/24 07:07 Immature Gran % (Auto) 0.2 % 09/07/24 07:07 Neutrophils % 57.0 % 09/07/24 07:07 Lymphocytes % 36.0 % 09/07/24 07:07 Monocytes % 5.5 % 09/07/24 07:07 Eosinophils % 0.8 % 09/07/24 07:07 Basophils % 0.5 % 09/07/24 07:07 Immature Gran # 0.01 10*3/uL (0.00-0.04) 09/07/24 07:07 Neutrophils # 3.55 10*3/uL (1.80-7.70) 09/07/24 07:07 Lymphocytes # 2.24 10*3/uL (0.90-5.00) 09/07/24 07:07 Monocytes # 0.34 10*3/uL (0.20-1.00) 09/07/24 07:07 Eosinophils # 0.05 10*3/uL (0.04-0.35) 09/07/24 07:07 Basophils # 0.03 10*3/uL (0.00-0.10) 09/07/24 07:07 Sodium 138 mmol/L (137-145) 09/07/24 07:07 Potassium 4.2 mmol/L (3.5-5.1) 09/07/24 07:07 Chloride 105 mmol/L (98-107) 09/07/24 07:07 Carbon Dioxide 21 mmol/L (22-30) L 09/07/24 07:07 Anion Gap 12 mmol/L 09/07/24 07:07 BUN 4 mg/dL (7-17) L 09/07/24 07:07 Creatinine 0.60 mg/dL (0.52-1.04) 09/07/24 07:07 Est GFR (CKD-EPI)AfAm >90 (>60 ml/min/1.73 sqM) 09/07/24 07:07 Est GFR (CKD-EPI)NonAf >90 (>60 ml/min/1.73 sqM) 09/07/24 07:07 Glucose 84 mg/dL (74-99) 09/07/24 07:[address] Glu mg/dL 108 mg/dL 09/07/24 07:07 Hemoglobin A1c 5.4 % (<=6.0) 09/07/24 07:07 Calcium 10.0 mg/dL (8.4-10.2) 09/07/24 07:07 Total Bilirubin 0.4 mg/dL (0.2-1.3) 09/07/24 07:07 AST 19 U/L (14-36) 09/07/24 07:07 ALT 17 U/L (4-34) 09/07/24 07:07 Alkaline Phosphatase 37 U/L (38-126) L 09/07/24 07:07 Total Protein 6.4 g/dL (6.3-8.2) 09/07/24 07:07 Albumin 4.2 g/dL (3.5-5.0) 09/07/24 07:07 Triglycerides 43.00 mg/dL (0.00-149.00) 09/07/24 07:07 Cholesterol 101.00 mg/dL (0.00-200.00) 09/07/24 07:07 LDL Cholesterol, Calc 50.8 mg/dL (0.0-131.0) 09/07/24 07:07 VLDL Cholesterol, Calc 8.60 mg/dL (5.00-40.00) 09/07/24 07:07 HDL Cholesterol 41.60 mg/dL (40.00-60.00) 09/07/24 07:07 Cholesterol/HDL Ratio 2.43 Ratio 09/07/24 07:07 TSH 3.810 mIU/L (0.465-4.680) 09/07/24 07:07 Free T4 1.42 ng/dL (0.78-2.19) 09/07/24 07:07 Urine Color Colorless 09/06/24 11:59 Urine Appearance Clear (Clear) 09/06/24 11:59 Urine pH 6.5 (5.0-8.0) 09/06/24 11:59 Ur Specific [place] 1.002 (1.001-1.035) 09/06/24 11:59 Urine Protein Negative (Negative) 09/06/24 11:59 Urine Glucose (UA) Negative (Negative) 09/06/24 11:59 Urine Ketones Negative (Negative) 09/06/24 11:59 Urine Blood Negative (Negative) 09/06/24 11:59 Urine Nitrite Negative (Negative) 09/06/24 11:59 Urine Bilirubin Negative (Negative) 09/06/24 11:59 Urine Urobilinogen <2.0 mg/dL (<2.0) 09/06/24 11:59 Ur Leukocyte Esterase Negative (Negative) 09/06/24 11:59 Urine HCG, Qual Not Detected (Not Detectd) 09/06/24 11:59 Urine Opiates Screen Not Detected (NotDetected) 09/06/24 11:59 Ur Oxycodone Screen Not Detected (NotDetected) 09/06/24 11:59 Urine Methadone Screen Not Detected (NotDetected) 09/06/24 11:59 Ur Barbiturates Screen Not Detected (NotDetected) 09/06/24 11:59 U Tricyclic Antidepress Not Detected (NotDetected) 09/06/24 11:59 Ur Phencyclidine Scrn Not Detected (NotDetected) 09/06/24 11:59 Ur Amphetamines Screen Not Detected (NotDetected) 09/06/24 11:59 U Methamphetamines Scrn Not Detected (NotDetected) 09/06/24 11:59 U Benzodiazepines Scrn Not Detected (NotDetected) 09/06/24 11:59 Urine Cocaine Screen Not Detected (NotDetected) 09/06/24 11:59 U Marijuana (THC) Screen Detected (NotDetected) H 09/06/24 11:59 SARS-CoV-2 (PCR) Not Detected (Not Detectd) 09/06/24 14:39 Vital Signs Temp 97.8 F 09/12/24 08:52 Pulse 73 09/12/24 08:52 Resp 17 09/11/24 21:00 BP 129/79 09/12/24 08:52 Pulse Ox 99 09/12/24 08:52 FiO2 Intake & Output 09/11/24 09/12/24 09/12/24 18:59 06:59 18:59 Weight 76.1 kg Patient Condition at Discharge: Stable Plan - Discharge Summary Discharge Rx Participant: Yes New Discharge Prescriptions: New Melatonin 10 mg PO HS 30 Days #60 tab risperiDONE [RisperDAL] 1 mg PO HS 30 Days #30 tab hydrOXYzine pamoate [Vistaril] 25 mg PO HS 30 Days #30 cap Nicotine 21Mg/24Hr Patch [Habitrol] 1 patch TRANSDERM DAILY 14 Days #14 patch Nicotine 14Mg/24Hr Patch [Habitrol] 1 patch TRANSDERM DAILY 14 Days #14 patch Continue valACYclovir HCL [Valtrex] 500 mg PO DAILY Levothyroxine Sodium [Synthroid] 25 mcg PO DAILY Discharge Medication List Levothyroxine Sodium [Synthroid] 25 mcg PO DAILY 08/03/24 [History] valACYclovir HCL [Valtrex] 500 mg PO DAILY 08/03/24 [History] Melatonin 10 mg PO HS 30 Days #60 tab 09/12/24 [Rx] Nicotine 14Mg/24Hr Patch [Habitrol] 1 patch TRANSDERM DAILY 14 Days #14 patch 09/12/24 [Rx] Nicotine 21Mg/24Hr Patch [Habitrol] 1 patch TRANSDERM DAILY 14 Days #14 patch 09/12/24 [Rx] hydrOXYzine pamoate [Vistaril] 25 mg PO HS 30 Days #30 cap 09/12/24 [Rx] risperiDONE [RisperDAL] 1 mg PO HS 30 Days #30 tab 09/12/24 [Rx] Follow up Appointment(s)/Referral(s): [facility] [Outside] - 09/19/24 8:00 am (09/19/2024 8:00AM - 9:00AM CHAVO GONZALEZ 09/26/2024 9:30AM - 10:00AM SAVANNAH FIORE ) Kenan Howell MD [Primary Care Provider] - 1-2 days Activity/Diet/Wound Care/Special Instructions: Avoid the use of street drugs and alcohol. Take all medications as prescribed. When you are in need of refills on your medications, please contact your medical provider and/or outpatient psychiatrist/provider to have this done. Please go to your scheduled outpatient appointment for aftercare treatment. If symptoms return or become worse, call the crisis line at and/or go to the nearest emergency room for evaluation. National Suicide Hotline [address] [facility] confidentiality statement: "The information contained in this communication, including attachments, is confidential, may be privileged, and is intended only for the use of the named recipient(s). Unauthorized use, d isclosure, forwarding or copying is strictly prohibited and may be unlawful. If you have received this communication in error, please notify me IMMEDIATELY at the phone number or pager listed above. Discharge Disposition: HOME SELF-CARE
== END 2024-09-12 12:16 | disposition home or self-care (01) | DRG 750 ==
LOC: EC 10:53 → 3MHU 16:59
PROVIDERS: ADMIT Psychiatry & Neurology Psychiatry; ATTEND Psychiatry & Neurology Psychiatry
DX: F29 Unspecified psychosis not due to a substance or known physiological condition (principal); F12.90 Cannabis use, unspecified, uncomplicated; F17.200 Nicotine dependence, unspecified, uncomplicated; E03.9 Hypothyroidism, unspecified; F32.A Depression, unspecified; F41.9 Anxiety disorder, unspecified; R45.851 Suicidal ideations; Z79.890 Hormone replacement therapy; Z79.899 Other long term (current) drug therapy; Z80.8 Family history of malignant neoplasm of other organs or systems; Z81.8 Family history of other mental and behavioral disorders; Z86.32 Personal history of gestational diabetes; F22 Delusional disorders; Z11.52 Encounter for screening for COVID-19
CPT/HCPCS: 80053; 80061; 80306; 81003; 81025; 82075; 83036; 84439; 84443; 85025; 87635; 99285